=== PATIENT | female | born 1980 | race Caucasian/White ===

== ENCOUNTER 2018-10-10 15:53 | Emergency (ER) | payer BC, SELFPAY ==
[2018-10-10 16:04] VITALS: BP 136/88; PULSE 67; RESP 20; TEMP 36.8; O2SAT 99
--- NOTE | 2018-10-10 16:45 | DI.RAD_ITS ---
SYMPTOM/DIAGNOSIS: COUGH, SOB, R/O ACUTE DISEASE. PA AND LATERAL CHEST: There are no prior comparison exams. The cardiac and mediastinal contours have a normal appearance. The lungs are well inflated and clear. No infiltrate or effusion is seen. IMPRESSION: Negative chest x-ray.
--- NOTE | 2018-10-10 16:46 | ED.GENADUL_ITS ---
Discharge Plan Disposition Patient Disposition: HOME Condition: Stable Discharge Details Chief Complaint: RespSymp Clinical Impression: Chest pain, Cough, Bronchitis Reason For Visit: ? PNEUMONIA Primary Care Provider: None,None ED Provider: Abeba Mcdonald Home Meds and New Rx's Prescriptions: New azithromycin [Zithromax Z-Sahdi] 250 mg tablet See Rx Instructions .ROUTE .COMPLEX Qty: 6 RF: 0 prednisone 50 mg tablet 50 mg PO DAILY Qty: 4 RF: 0 Continued epinephrine [EpiPen] 0.3 mg/0.3 mL Auto-Injector RF: 0 Ventolin HFA 90 mcg/actuation Hfa Aerosol Inhaler 1 PRN PRNRF: 0 Zyrtec 10 mg Tablet,Disintegrating 10 mg PO DAILY AM RF: 0 Aleve-D Sinus and Cold 220-120 mg Tablet Extended Release 12 Hr 1 tab PRNRF: 0 pseudoephedrine-guaifenesin [Mucinex D] 60-600 mg Tablet Extended Release 12 Hr 1 tab PO PRN PRNRF: 0 acetaminophen [Tylenol] 325 mg Tablet 2 tab PO PRN PRNRF: 0 28-800 mg-mcg Tablet 1 RF: 0 Discharge Instructions Instructions: Chest Pain (ED), Acute Bronchitis (ED), Acute Cough (ED) Additional Instructions: Take [id number] cough and cold medicine as needed and directed. Alternate Tylenol and Motrin as needed and directed for pain. Use your inhaler as needed and directed for shortness of breath or wheezing. Take the steroids until finished. If your symptoms do not improve or worsen over the next 2 days, you may start the antibiotics. Consider stopping smoking. Follow-up with your primary care doctor in 1 week for reevaluation. Return immediately to the emergency department any worsening or new concerning symptoms. Discharge Data Discharge Date/Time-TO BE ENTERED AT DEPARTURE: 10/10/18 19:56 Discharge Physician: Abeba Mcdonald Medical Decision Making 38-year-old female with a history of asthma and migraine who presents with cold symptoms for the past 2 days. Main complaint is cough, chest congestion and left-sided chest pain worse with coughing and deep breath. Patient states she is mainly here for chest x-ray to rule out pneumonia. Vitals within normal limits. Afebrile. Patient appears nontoxic and in no acute distress. Normal ENT exam lungs clear to auscultation. Presentation appears likely consistent with bronchitis versus viral syndrome versus flu. Patient received a flu shot this year and she has no fever, so this appears less likely. After discussion with patient, she is mainly concerned about pneumonia and less likely a PE. As she is Wells score low and PERC negative with no other DVT risk factors, PE appears less likely. Will obtain a chest x-ray, d-dimer and EKG. D-dimer negative. EKG unremarkable. Chest x-ray negative. Patient states she feels much better. Discussed with patient that her symptoms can be most likely bronchitis versus viral syndrome. Patient has inhaler at home. Will give a dose of steroids here and prescription for home. Since patient is a smoker, will also give her prescription for antibiotics if symptoms do not improve or worsen. She is instructed to follow-up with primary care doctor return here at any time if worse Medical Records Medical records reviewed: Yes I reviewed the patient's medical records. Imaging Data Radiologic Study: Radiologist's impression: XR Chest, 2 Views EXAM DATE/TIME: 10/10/2018 4:46 PM CLINICAL HISTORY: 38 years old, female; Signs and symptoms; Other: Cough, SOB, R/O acute disease TECHNIQUE: XR of the chest, 2 views. COMPARISON: No relevant prior studies available. FINDINGS: Lungs: Unremarkable. No consolidation. Pleural space: Unremarkable. No pleural effusion. No pneumothorax. Heart/Mediastinum: Unremarkable. No cardiomegaly. Upper abdomen: Surgical clips in the upper abdomen Bones/joints: Unremarkable. IMPRESSION: No acute process Lab Data Lab results reviewed: Yes I reviewed the patient's lab results. ECG Data Attestation: I personally reviewed and interpreted this ECG (s) as follows: Interpretation: 1843 --rate of 61, sinus, no acute ST elevation or depression, QTC 429. QRS 90 HPI General Mode of arrival: ambulatory . Date/Time Provider Initiated Documentation: 10/10/18 16:02 . Limitations to Documentation: no limitations . Information obtained by: patient . HPI Narrative: Patient is a 38-year-old female with history of asthma, migraines and seizures who presents for chest cold for the past 2 days. Patient states her symptoms started with dry cough with chest congestion and then she developed left-sided chest pain with sharp coughing that is worse with a deep breath. Patient states she has been eating and drinking okay. She states she did receive the flu shot this year. Patient denies any fever, ear pain, sore throat, recent antibiotics, or recent travel. 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 Patient states she also feels generally fatigued and she is mainly concerned about pneumonia. She denies leg pain or swelling, recent travel, recent surgery. Related Data Home Medications Medication Instructions Recorded Confirmed Aleve-D Sinus and Cold 1 tab PRN 10/10/18 1 10/10/18 Ventolin HFA 1 PRN PRN 10/10/18 Zyrtec 10 mg PO DAILY AM 10/10/18 10/10/18 acetaminophen [Tylenol] 2 tab PO PRN PRN 10/10/18 10/10/18 azithromycin [Zithromax Z-Shadi] See Rx Instructions .ROUTE 10/10/18 .COMPLEX #6 tab epinephrine [EpiPen] 10/10/18 prednisone 50 mg PO DAILY #4 tab 10/10/18 pseudoephedrine-guaifenesin 1 tab PO PRN PRN 10/10/18 10/10/18 [Mucinex D] Previous Rx's Medication Instructions Recorded azithromycin [Zithromax Z-Shadi] See Rx Instructions .ROUTE 10/10/18 .COMPLEX #6 tab prednisone 50 mg PO DAILY #4 tab 10/10/18 Allergies Allergy/AdvReac Type Severity Reaction Status Date / Time amiodarone Allergy Unverified 10/10/18 16:12 shellfish derived Allergy Unverified 10/10/18 16:11 sumatriptan [From Imitrex] AdvReac Unverified 10/10/18 16:12 General Stated Complaint: RespSymp WES: 3 Review of Systems Review of Systems All systems reviewed & are unremarkable except as noted in HPI and below Constitutional Reports as per HPI, Reports chills and Denies fever(s) Eyes Denies blurry vision ENT Denies dizziness, Denies otalgia, Denies sore throat and Denies throat swelling Cardiovascular Reports chest pain and Denies dyspnea Respiratory Reports chest congestion, Reports cough, Reports pain on inspiration, Reports pain with cough and Denies dyspnea Gastrointestinal Denies abdominal pain, Denies diarrhea and Denies vomiting Genitourinary Denies hematuria and Denies dysuria Musculoskeletal Denies back pain and Denies numbness Integumentary/Breasts Denies lesions and Denies rash Neurologic Denies dizziness and Denies numbness Allergic/Immunologic Denies throat swelling [facility] Medical History Asthma (Chronic) Migraine (Chronic) Seizure disorder (Chronic) Surgical History Hx of cholecystectomy (Chronic) Social History Smoking/Tobacco Use Status: Current every day alcohol intake: current alcohol intake frequency: a few times a month substance use type: does not use Exam Const General: cooperative, healthy appearing and no acute distress HENMT Head: normal to inspection Ears: hearing grossly normal bilaterally and TM's normal bilaterally General nose exam: external nose normal Face and sinus: normal facial exam and sinuses nontender Mouth: oral mucosae normal Teeth and gingiva: dentition normal Throat: posterior oropharynx normal Eyes General: appearance normal, both eyes and all related structures Pupils: PERRL EOM: EOM intact bilaterally Neck Neck: normal visual inspection and No submandibular swelling Lymphatic: no lymphadenopathy noted Chest Chest: normal inspection of the chest and no tenderness Resp Effort & Inspection: normal respiratory effort and able to speak in complete sentences Auscultation: clear to auscultation bilaterally Cardio Rate: regular rate Rhythm: regular rhythm GI Inspection: normal to inspection Palpation: soft, not firm, not rigid and nontender Auscultation: normal bowel sounds Skin General skin exam: no rashes or lesions noted Neuro General: alert, awake and oriented x3 Cognition: normal cognition Speech: speech normal Motor: muscle tone normal throughout Sensory Exam: no sensory deficits noted Extrem General: normal to inspection, full ROM, normal capillary refill, no calf tenderness bilaterally and no edema Psych Appearance: grossly normal Mental Status: mental status grossly normal Speech and Movement: speech and movement normal Affect: normal affect Course Vital Signs Temperature 98.2 F 10/10/18 16:04 Pulse 67 10/10/18 16:04 Respiratory Rate 20 10/10/18 16:04 Blood Pressure 136/88 10/10/18 16:04 Pulse Oximetry 99 10/10/18 16:04 Temperature 98.2 F 10/10/18 16:04 Temperature Source Temporal Artery Scan 10/10/18 16:04 Pulse 67 01/12/19 16:04 Respiratory Rate 20 10/10/18 16:04 Respiratory Effort 10/10/18 16:09 Blood Pressure 136/88 10/10/18 16:04 Blood Pressure Position Sitting 10/10/18 16:04 Pulse Oximetry 99 10/10/18 16:04 Oxygen Delivery Method Room Air 10/10/18 16:04 Oxygen Flow Rate 0 10/10/18 16:04
[2018-10-10] MEDS: Ibuprofen 600 MG TAB PO (16:56)
--- NOTE | 2018-10-10 17:19 | DI.VRAD_ITS ---
EXAM: XR Chest, 2 Views EXAM DATE/TIME: 10/10/2018 4:46 PM CLINICAL HISTORY: 38 years old, female; Signs and symptoms; Other: Cough, SOB, R/O acute disease TECHNIQUE: XR of the chest, 2 views. COMPARISON: No relevant prior studies available. FINDINGS: Lungs: Unremarkable. No consolidation. Pleural space: Unremarkable. No pleural effusion. No pneumothorax. Heart/Mediastinum: Unremarkable. No cardiomegaly. Upper abdomen: Surgical clips in the upper abdomen Bones/joints: Unremarkable. IMPRESSION: No acute process Dictated and Authenticated by: Neeta Angela MD. Ordering:LUISA Us MD
[2018-10-10 19:13] LABS: D-Dimer 205 ng/mlFEU (<500)
[2018-10-10 19:21] VITALS: BP 124/80; PULSE 57; RESP 16; TEMP 36.7; O2SAT 97
[2018-10-10 19:55] VITALS: BP 124/80; PULSE 57; RESP 16; O2SAT 97
[2018-10-10] MEDS: predniSONE 20 MG TAB 60 MG PO (19:55)
== END 2018-10-10 19:56 | disposition home or self-care (01) ==
PROVIDERS: Emergency Provider Physician Assistant
DX: R07.9 Chest pain, unspecified (principal); J20.9 Acute bronchitis, unspecified; F17.210 Nicotine dependence, cigarettes, uncomplicated
CPT/HCPCS: 36415; 81025; 93005; 99284; 71046; 85379; 93010; 99285; J7512

== ENCOUNTER 2020-07-05 15:41 | Emergency (ER) | payer OTHER, BC, SELFPAY ==
[2020-07-05 15:45] VITALS: BP 117/95; PULSE 96; RESP 18; TEMP 36.5; O2SAT 96
--- NOTE | 2020-07-05 16:30 | DI.RAD_ITS ---
EXAM: XR THORACIC SPINE COMPLETE CLINICAL HISTORY: bending/lifting injury TECHNIQUE: COMPARISON: CR,XR XR LUMBAR SPINE COMPLETE from 07/05/2020 FINDINGS: Three views were obtained. The intervertebral disc spaces appear mildly narrowed throughout the thor acic region. There is minimal hypertrophic spurring of the vertebral endplates. There is no evidenc e of fracture or dislocation. There is a minimal biconvex thoracolumbar scoliosis. Of the thoracic spine. Five views of the lumbar spine were obtained. There is slight narrowing of the intervertebral disc s pace at L5-S1. Otherwise intervertebral disc spaces are well maintained. Minimal hypertrophic spurr ing of the facet joints noted throughout the lumbar region. There is no evidence of acute fracture o r dislocation. There is no evidence of spondylolysis or spondylolisthesis. There is slight bilateral SI joint degenerative change. Note is made of prior cholecystectomy. IMPRESSION: Slight degenerative changes noted, no evidence of acute injury. RADIATION DOSE DELIVERED: Total DLP
[2020-07-05] MEDS: Ketorolac 60 MG/2 ML VIAL IM (16:42)
--- NOTE | 2020-07-05 16:43 | ED.GENADUL_ITS ---
Discharge Plan Disposition Patient Disposition: HOME Condition: Stable Discharge Details Clinical Impression: Back pain Primary Care Provider: Bayron Varghese ED Provider: Sukhdev Wray Home Meds and New Rx's Prescriptions: New naproxen [Naprosyn] 500 mg tablet 500 mg PO BID PRNQty: 20 RF: 0 cyclobenzaprine 5 mg tablet 5 mg PO TID PRNQty: 14 RF: 0 Continued epinephrine [EpiPen] 0.3 mg/0.3 mL Auto-Injector 1 mg IM PRN PRNRF: 0 albuterol sulfate [Ventolin HFA] 90 mcg/actuation Hfa Aerosol Inhaler 2 puff inhalation PRN PRNRF: 0 Zyrtec 10 mg Tablet,Disintegrating 10 mg PO DAILY AM RF: 0 Aleve-D Sinus and Cold 220-120 mg Tablet Extended Release 12 Hr 1 tab PO PRN PRNRF: 0 pseudoephedrine-guaifenesin [Mucinex D] 60-600 mg Tablet Extended Release 12 Hr 1 tab PO PRN PRNRF: 0 acetaminophen [Tylenol] 325 mg Tablet 2 tab PO PRN PRNRF: 0 28-800 mg-mcg Tablet 1 tab PO DAILY RF: 0 ergocalciferol (vitamin D2) 1,000 unit Capsule 4,000 unit PO DAILY RF: 0 zinc 50 mg Capsule 50 mg PO DAILY RF: 0 Discharge Instructions Instructions: Back Pain (ED) Additional Instructions: Flexeril and Naprosyn as directed, Flexeril may cause drowsiness. Gentle stretching as tolerated. Cool and/or warm compresses every 2 hours for 20 minutes. Please watch for new or worsening symptoms and return to the ER for any concerns. I am giving you a copy of your x-rays on a CD to bring to your primary care provider and/or chiropractor. I am giving you a work note for Friday. I recommend that you get reassessed on Friday to determine if you are safe to return to work next week or not. Outpatient physical therapy and additional imaging such as MRI may be indicated if symptoms persist Stand Alone Forms: Work Release Discharge Data Discharge Date/Time-TO BE ENTERED AT DEPARTURE: 07/05/20 18:03 Medical Decision Making 40-year-old female with no significant back history presents with right-sided back discomfort while lifting up on a stretcher and her partner of lower the stretcher. There is no abdominal pain, bowel or bladder changes, radiation of pain, numbness, tingling, weakness. Clinically she has right sided upper lumbar, lower thoracic paravertebral discomfort. She is neurologically intact. We discussed our options. Will obtain x-rays of her thoracic and lumbar spine. Apply a Lidoderm patch and give IM Toradol. We discussed muscle relaxer however she does not have a ride home. X-ray lumbar and thoracic spine as no acute abnormality. On reevaluation patient reports that her pain has not resolved completely but has improved with the Toradol and Lidoderm patch. We once again discussed our options. I will provide the patient a copy of her x-ray so that she may bring them to those her primary care provider and her chiropractor, she stated interest in seeing. We discussed that outpatient physical therapy and/or potential MRI may be indicated if symptoms persist. Patient works Friday, will provide her a work note for Friday. In the meantime we discussed gentle stretching, warm and/or cool compresses, anti-inflammatory therapy, and I will provide prescription for Flexeril. Patient is agreeable to this plan and has no additional questions or concerns. Medical Records Medical records reviewed: Yes I reviewed the patient's medical records. HPI General Date/Time Provider Initiated Documentation: 07/05/20 15:50 . Limitations to Documentation: no limitations . Information obtained by: patient . HPI Narrative: This is a 40-year-old female with past medical history of asthma, migraines, seizure disorder, presenting to the ER for right-sided back pain. 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 She instantly felt pain on the right side of her back, pain is moderate at rest, severe with engagement. She denies any radiation of her pain, abdominal pain, bowel or bladder incontinence, numbness, tingling, weakness in her extremities. She denies ever having injured her back in the past. Patient states that either standing upright still or lying down is the most comfortable positions. She has not taken anything for her discomfort. Related Data Home Medications Medication Instructions Recorded Confirmed Aleve-D Sinus and Cold 1 tab PO PRN PRN 10/10/18 07/05/20 1 tab PO DAILY 10/10/18 07/05/20 Zyrtec 10 mg PO DAILY AM 10/10/18 07/05/20 acetaminophen [Tylenol] 2 tab PO PRN PRN 10/10/18 07/05/20 albuterol sulfate [Ventolin HFA] 2 puff INHALATION PRN PRN 10/10/18 07/05/20 epinephrine [EpiPen] 1 mg IM PRN PRN 10/10/18 07/05/20 pseudoephedrine-guaifenesin 1 tab PO PRN PRN 10/10/18 07/05/20 [Mucinex D] cyclobenzaprine 5 mg PO TID PRN #14 tab 07/05/20 ergocalciferol (vitamin D2) 4,000 unit PO DAILY 07/05/20 07/05/20 naproxen [Naprosyn] 500 mg PO BID PRN #20 tab 07/05/20 zinc 50 mg PO DAILY 07/05/20 07/05/20 Previous Rx's Medication Instructions Recorded cyclobenzaprine 5 mg PO TID PRN #14 tab 07/05/20 naproxen [Naprosyn] 500 mg PO BID PRN #20 tab 07/05/20 Allergies Allergy/AdvReac Type Severity Reaction Status Date / Time amiodarone Allergy Unverified 07/05/20 15:49 shellfish derived Allergy Unverified 07/05/20 15:49 sumatriptan [From Imitrex] AdvReac Unverified 07/05/20 15:49 General Stated Complaint: Nk/Back Pain WES: 3 Review of Systems Constitutional Constitutional: Denies weakness ENT Ears, Nose, Mouth, and Throat: Denies neck pain Cardiovascular Cardiovascular: Denies chest pain Gastrointestinal Gastrointestinal: Denies abdominal pain, Denies fecal incontinence, Denies nausea and Denies vomiting Genitourinary Genitourinary: Denies urinary incontinence Musculoskeletal Musculoskeletal: Reports back pain, Denies neck pain, Denies numbness, Denies stiffness and Denies tingling Integumentary/Breasts Skin/Breast: Denies rash Neurologic Neurologic: Denies numbness, Denies tingling and Denies weakness PFSH Medical History Asthma Migraine Seizure disorder Surgical History Hx of cholecystectomy Social History Smoking/Tobacco Use Status: Current every day Alcohol Intake: current Alcohol Intake frequency: a few times a month Drug use: Never Substance use type: does not use Details: brought by co-worker Do you feel safe at home: Yes Do you feel safe in your relationship?: Yes Exam Const General: cooperative, healthy appearing, comfortable and no acute distress Orientation: alert, awake and oriented x3 HENMT Head: normal to inspection, normocephalic and atraumatic Mouth: moist mucous membranes Eyes Conjunctivae: conjunctivae normal Sclera: sclerae normal Neck Neck: normal visual inspection, full ROM, trachea midline, supple and nontender Resp Effort & Inspection: normal respiratory effort and able to speak in complete se ntences Auscultation: clear to auscultation bilaterally Cardio Rate: regular rate Rhythm: regular rhythm GI Palpation: soft, not firm, no guarding and nontender Back/Spine/Pelvis Back: no CVA tenderness and back tenderness (R sided upper lumber-lower thoracic paravertebral soft tissue discomfort) Thoracic/Lumbar Spine: paraspinal tenderness, thoraco-lumbar ROM limited (Secondary to discomfort), No thoraco-lumbar spasm (No true spasm but the area feels tight compared to the left) and straight leg raise positive (Right side, 10 degrees) Skin General skin exam: no rashes or lesions noted Neuro General: patient alert, patient awake, moves all extremities and no focal motor deficits Cognition: normal cognition Gait: antalgic Motor: muscle tone normal throughout and strength 5/5 throughout Sensory Exam: no sensory deficits noted DTR's: Rt Patellar: 2+, Lt Patellar: 2+, Rt Ankle: 2+ and Lt Ankle: 2+ Extrem General: normal to inspection, full ROM, capillary refill normal, no pedal edema and no calf tenderness Psych Appearance: grossly normal Mental Status: mental status grossly normal Course Vital Signs Vital signs: Vital Signs Temperature 36.5 C 07/05/20 15:45 Pulse 96 H 07/05/20 15:45 Respiratory Rate 18 07/05/20 15:45 Blood Pressure 117/95 H 07/05/20 15:45 Pulse Oximetry 96 07/05/20 15:45 Temperature 36.5 C 07/05/20 15:45 Temperature Source Skin 07/05/20 15:45 Pulse 96 H 07/05/20 15:45 Respiratory Rate 18 07/05/20 15:45 Respiratory Effort 07/05/20 15:53 Blood Pressure 117/95 H 07/05/20 15:45 Blood Pressure Position Sitting 07/05/20 15:45 Pulse Oximetry 96 07/05/20 15:45 Oxygen Delivery Method Room Air 07/05/20 15:45 Oxygen Flow Rate 0 07/05/20 15:45 Pain Level 10 07/05/20 15:45
[2020-07-05] MEDS: Lidocaine 5% Patch 1 PATCH (16:47)
[2020-07-05 18:02] VITALS: BP 119/72; PULSE 71; RESP 16; TEMP 36.8; O2SAT 96
--- NOTE | 2020-07-13 16:02 | DI.VRAD_ITS ---
PROCEDURE INFORMATION: Exam: XR Lumbosacral Spine, 4 or 5 Views Exam date and time: 07/05/2020 5:08 PM Age: 40 years old Clinical indication: Injury or trauma; Other: Lifting injury; Work related; Sprain or strain, lumbar ligaments TECHNIQUE: Imaging protocol: XR of the lumbosacral spine, 4 or 5 views. COMPARISON: No relevant prior studies available. FINDINGS: Vertebrae: All spinal elements are developmentally normal and intact. Normal alignment. No degenerative spurring or stenosis. Soft tissues: Normal. Intraperitoneal space: Surgical clips are present in the right upper quadrant, consistent with previous cholecystectomy. IMPRESSION: Normal lumbar spine. Dictated and Authenticated by: Paresh Kim MD. Ordering:MICHAEL Santizo MD
--- NOTE | 2020-07-13 16:02 | DI.VRAD_ITS ---
PROCEDURE INFORMATION: Exam: XR Thoracic Spine, 3 Views Exam date and time: 07/05/2020 5:07 PM Age: 40 years old Clinical indication: Injury or trauma; Other: Lifting injury; Work related; Sprain or strain TECHNIQUE: Imaging protocol: XR of the thoracic spine, 3 views. COMPARISON: No relevant prior studies available. FINDINGS: Vertebrae: Minimal anterior vertebral body spurring. All bones are intact. There is mild dextro rotation of the upper thoracic spine, not likely clinically significant. Sub threshold S-shaped thoracic curvature. Soft tissues: Normal. IMPRESSION: No acute fracture traumatic malalignment or stenosis. Dictated and Authenticated by: Paresh Kim MD. Ordering:MICHAEL Santizo MD
== END 2020-07-05 18:03 | disposition home or self-care (01) ==
PROVIDERS: Emergency Provider Physician Assistant; PCP Physician Assistant
DX: M54.6 Pain in thoracic spine (principal); X50.9XXA Other and unspecified overexertion or strenuous movements or postures, initial encounter; Y99.0 Civilian activity done for income or pay
CPT/HCPCS: 96372; 99284; 72072; 72110; J1885

== ENCOUNTER 2020-09-10 18:41 | Emergency (ER) | payer BC, SELFPAY ==
[2020-09-10 18:44] VITALS: BP 157/85; PULSE 85; RESP 16; TEMP 36.6; O2SAT 98
--- NOTE | 2020-09-10 19:03 | ED.GENADUL_ITS ---
Discharge Plan Disposition Patient Disposition: HOME Condition: Stable Discharge Details Clinical Impression: Laceration of thumb Primary Care Provider: Bayron Varghese ED Provider: Sukhdev Wray Home Meds and New Rx's Prescriptions: Continued epinephrine [EpiPen] 0.3 mg/0.3 mL Auto-Injector 1 mg IM PRN PRNRF: 0 albuterol sulfate [Ventolin HFA] 90 mcg/actuation Hfa Aerosol Inhaler 2 puff inhalation PRN PRNRF: 0 Zyrtec 10 mg Tablet,Disintegrating 10 mg PO DAILY AM RF: 0 Aleve-D Sinus and Cold 220-120 mg Tablet Extended Release 12 Hr 1 tab PO PRN PRNRF: 0 pseudoephedrine-guaifenesin [Mucinex D] 60-600 mg Tablet Extended Release 12 Hr 1 tab PO PRN PRNRF: 0 acetaminophen [Tylenol] 325 mg Tablet 2 tab PO PRN PRNRF: 0 ergocalciferol (vitamin D2) 1,000 unit Capsule 4,000 unit PO DAILY RF: 0 zinc 50 mg Capsule 50 mg PO DAILY RF: 0 naproxen [Naprosyn] 500 mg tablet 500 mg PO BID PRNQty: 20 RF: 0 cyclobenzaprine 5 mg tablet 5 mg PO TID PRNQty: 14 RF: 0 Microfactor 1 po pk PO RF: 0 Discharge Instructions Instructions: Laceration (ED) Additional Instructions: Keep the area clean and dry, change dry sterile dressing daily. Dermabond will come off on its own in approximately 7 days. Please watch for new or worsening symptoms and return to the ER for any concerns. Medical Decision Making This is a 40-year-old female, ambidextrous, presents with a left thumb laceration. Appears well, no distress. Bleeding controlled, no foreign body. Tetanus up-to-date. Will thoroughly soak, scrub, irrigate the laceration and repair. After the laceration was thoroughly cleaned, I was able to approximate the flap laceration using Dermabond without any difficulty. Patient tolerated well. Dry sterile dressing applied Medical Records Medical records reviewed: Yes I reviewed the patient's medical records. HPI General Mode of arrival: ambulatory . Date/Time Provider Initiated Documentation: 09/10/20 18:42 . Limitations to Documentation: no limitations . Information obtained by: patient . HPI Narrative: This is a 40-year-old female, who is ambidextrous, who sustained a left thumb laceration just prior to arrival while cutting carrots. She reports the pain is mild. Denies numbness, tingling, weakness. Tetanus status up-to-date. No additional concerns or complaints. No foreign body. Bleeding is controlled. Related Data Home Medications Medication Instructions Recorded Confirmed Aleve-D Sinus and Cold 1 tab PO PRN PRN 10/10/18 09/10/20 Zyrtec 10 mg PO DAILY AM 10/10/18 09/10/20 acetaminophen [Tylenol] 2 tab PO PRN PRN 10/10/18 09/10/20 albuterol sulfate [Ventolin HFA] 2 puff INHALATION PRN PRN 10/10/18 09/10/20 epinephrine [EpiPen] 1 mg IM PRN PRN 10/10/18 09/10/20 pseudoephedrine-guaifenesin 1 tab PO PRN PRN 10/10/18 09/10/20 [Mucinex D] cyclobenzaprine 5 mg PO TID PRN #14 tab 07/05/20 09/10/20 ergocalciferol (vitamin D2) 4,000 unit PO DAILY 07/05/20 09/10/20 naproxen [Naprosyn] 500 mg PO BID PRN #20 tab 07/05/20 09/10/20 zinc 50 mg PO DAILY 07/05/20 09/10/20 Microfactor 1 po pk PO 09/10/20 Previous Rx's Medication Instructions Recorded cyclobenzaprine 5 mg PO TID PRN #14 tab 07/05/20 naproxen [Naprosyn] 500 mg PO BID PRN #20 tab 07/05/20 Allergies Allergy/AdvReac Type Severity Reaction Status Date / Time amiodarone Allergy Unverified 09/10/20 18:47 shellfish derived Allergy Unverified 09/10/20 18:47 sumatriptan [From Imitrex] AdvReac Unverified 09/10/20 18:47 General Stated Complaint: Laceration WES: 4 Review of Systems Musculoskeletal Musculoskeletal: Denies arthralgias and Denies tingling Integumentary/Breasts Skin/Breast: Denies erythema Neurologic Neurologic: Denies tingling [facility] Medical History Asthma Migraine Seizure disorder Surgical History Hx of cholecystectomy Social History Smoking/Tobacco Use Status: Current every day Smoking risk assessment performed?: Yes Alcohol Intake: current Alcohol Intake frequency: a few times a month Drug use: Never Substance use type: does not use Details: brought by co-worker Do you feel safe at home: Yes Do you feel safe in your relationship?: Yes Exam Const General: cooperative, healthy appearing, comfortable and no acute distress Orientation: alert and awake HENMT Head: normal to inspection, normocephalic and atraumatic Mouth: moist mucous membranes Eyes Conjunctivae: conjunctivae normal Neck Neck: normal visual inspection, trachea midline and supple Resp Effort & Inspection: normal respiratory effort and able to speak in complete sentences Cardio Rate: regular rate Rhythm: regular rhythm Skin General skin exam: no rashes or lesions noted Neuro General: patient alert, patient awake, moves all extremities and no focal motor deficits Motor: muscle tone normal throughout Sensory Exam: no sensory deficits noted Extrem Hand/finger images: 1. There is a 1 cm flap laceration that is well approximated. There is no active bleeding or obvious foreign body. Full range of motion. Neuro, vascular, tendon intact. Psych Appearance: grossly normal Mental Status: mental status grossly normal Course Vital Signs Vital signs: Vital Signs Temperature 36.6 C 09/10/20 18:44 Pulse 85 09/10/20 18:44 Respiratory Rate 16 09/10/20 18:44 Blood Pressure 157/85 H 09/10/20 18:44 Pulse Oximetry 98 09/10/20 18:44 Temperature 36.6 C 09/10/20 18:44 Temperature Source Skin 09/10/20 18:44 Pulse 85 09/10/20 18:44 Respiratory Rate 16 09/10/20 18:44 Respiratory Effort Non-Labored 09/10/20 18:46 Blood Pressure 157/85 H 09/10/20 18:44 Blood Pressure Position Sitting 09/10/20 18:44 Pulse Oximetry 98 09/10/20 18:44 Oxygen Delivery Method Room Air 09/10/20 18:44 Oxygen Flow Rate 0 09/10/20 18:44 Pain Level 1 09/10/20 18:44
== END 2020-09-10 20:30 | disposition home or self-care (01) ==
PROVIDERS: Emergency Provider Physician Assistant; PCP Physician Assistant
DX: S61.012A Laceration without foreign body of left thumb without damage to nail, initial encounter (principal); W26.0XXA Contact with knife, initial encounter
CPT/HCPCS: 12001

== ENCOUNTER 2021-08-20 09:37 | Outpatient (CLI) | payer BC, SELFPAY ==
[2021-08-20 10:38] LABS: Source Nasal/Nares
[2021-08-20 17:39] LABS: COVID-19 PCR Negative (Negative)
== END 2021-08-20 09:38 | disposition home or self-care (01) ==
LOC: LBO 09:39
PROVIDERS: PCP Physician Assistant; Visit Provider Family Medicine
DX: Z20.822 Contact with and (suspected) exposure to COVID-19 (principal)
CPT/HCPCS: 87635

== ENCOUNTER 2021-12-10 21:13 | Emergency (ER) | payer OTHER, SELFPAY ==
[2021-12-10 21:21] VITALS: BP 141/91; PULSE 98; RESP 18; TEMP 37; O2SAT 98
--- NOTE | 2021-12-10 21:45 | DI.RAD_ITS ---
Exam(s) XR SHOULDER LT COMPLETE 2+V XR CLAVICLE LT EXAM: XR CLAVICLE LT CLINICAL HISTORY: trauma TECHNIQUE: 2D digital imaging was performed. COMPARISON: CR,XR XR SHOULDER LT COMPLETE 2+V from 12/10/2021 FINDINGS: BONES: No acute fracture is present. No bony destructive lesion is seen. JOINTS: No dislocation present. AC joint unremarkable. Glenohumeral joint well maintained. SOFT TISSUE: Small calcification near the greater tuberosity could indicate calcific tendinosis. IMPRESSION: No acute abnormality. Calcific tendinosis. DATA REPOSITORY: RADIATION DOSE DELIVERED:
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
[2021-12-10] MEDS: Ibuprofen 600 MG TAB PO (23:03)
[2021-12-10 23:06] VITALS: BP 136/83; PULSE 85; RESP 14; TEMP 37; O2SAT 100
== END 2021-12-10 23:16 | disposition home or self-care (01) ==
PROVIDERS: Emergency Provider Nurse Practitioner Family; PCP Physician Assistant
DX: S40.012A Contusion of left shoulder, initial encounter (principal); S00.83XA Contusion of other part of head, initial encounter; S50.02XA Contusion of left elbow, initial encounter; Y04.2XXA Assault by strike against or bumped into by another person, initial encounter; Y99.0 Civilian activity done for income or pay
CPT/HCPCS: 99284; 73000; 73030; 99283

== ENCOUNTER 2022-03-19 19:00 | Outpatient (REF) | payer BC, SELFPAY ==
[2022-03-19 15:24] LABS: HCT 44.1 % (36.0-46.0); HGB 14.8 g/dL (11.2-15.7); MCH 29.8 pg (27.0-33.0); MCHC 33.6 % (32.0-36.0); MCV 89 fL (80-95); MPV 10.7 fL (8.0-11.0); Platelet Count 317 10^3/uL (130-400); RBC 4.96 10^6/uL (3.93-5.22); RDW 12.9 % (11.7-14.6); RDW-SD 42.5 fL; WBC 5.71 10^3/uL (4.4-10.8)
[2022-03-19 16:39] LABS: Hemoglobin A1C 5.7 % (<5.7)
[2022-03-19 18:14] LABS: ALT 18 U/L (14-59); AST 18 U/L (15-37); Albumin 4.3 g/dL (3.4-5.0); Alkaline Phosphatase 65 U/L (46-116); Anion Gap 7.9 mmol/L (3-11); BUN 13 mg/dL (7-18); Bilirubin, Total 0.4 mg/dL (0.2-1.0); CO2 28.1 mmol/L (21.0-32.0); CREATININE 0.8 mg/dL (0.55-1.02); Calcium 8.8 mg/dL (8.5-10.1); Chloride 99 mmol/L (98-107); Glucose 94 mg/dL (74-106); Potassium 3.9 mmol/L (3.5-5.1); Sodium 135 mmol/L (136-145); Total Protein 7.5 g/dL (6.4-8.2)
[2022-03-19 18:40] LABS: Calculated LDL 110 mg/dL (<100); Cholesterol 179 mg/dL (<200); HDL Cholesterol 51 mg/dL (40-60); Triglyceride 91 mg/dL (<150)
[2022-03-21 05:10] LABS: Vitamin D 25 Total 18.1 ng/mL (30-100)
== END 2022-03-19 19:01 | disposition home or self-care (01) ==
LOC: NCHCN 19:00
PROVIDERS: PCP Physician Assistant; Visit Provider Nurse Practitioner Family
DX: R73.09 Other abnormal glucose (principal); Z00.00 Encounter for general adult medical examination without abnormal findings; E55.9 Vitamin D deficiency, unspecified; E66.9 Obesity, unspecified
CPT/HCPCS: 80053; 80061; 82306; 85027; 83036

== ENCOUNTER 2022-04-21 18:23 | Emergency (ER) | payer BC, SELFPAY ==
[2022-04-21 18:29] VITALS: BP 128/80; PULSE 87; RESP 16; TEMP 36.2; O2SAT 97
--- NOTE | 2022-04-21 18:58 | ED.GENADUL_ITS ---
Discharge Plan Disposition Patient Disposition: HOME Condition: Stable Discharge Details Clinical Impression: Dog bite of forearm Primary Care Provider: Katerin Puente ED Provider: Arlene Sierra Home Meds and New Rx's Prescriptions: New doxycycline hyclate 100 mg tablet 100 mg PO BID 7 Days Qty: 14 0RF Continued epinephrine [EpiPen] 0.3 mg/0.3 mL Auto-Injector 1 mg IM PRN PRN albuterol sulfate [Ventolin HFA] 90 mcg/actuation Hfa Aerosol Inhaler 2 puff inhalation PRN PRN Zyrtec 10 mg Tablet,Disintegrating 10 mg PO DAILY AM Aleve-D Sinus and Cold 220-120 mg Tablet Extended Release 12 Hr 1 tab PO PRN PRN acetaminophen [Tylenol] 325 mg Tablet 2 tab PO PRN PRN ergocalciferol (vitamin D2) 1,000 unit Capsule 4,000 unit PO DAILY naproxen [Naprosyn] 500 mg tablet 500 mg PO BID PRNQty: 20 0RF Microfactor 1 po pk PO DAILY Discharge Instructions Additional Instructions: Please return should shoulder develop fever, chills, worsening pain, spreading redness Take the antibiotic as prescribed for 5 to 7 days Yogurt daily while on the antibiotic Change dressing daily Discharge Data Discharge Date/Time-TO BE ENTERED AT DEPARTURE: 04/21/22 19:21 Medical Decision Making cleansed wound copiously doxycycline rabies vaccine utd for dog and td utd per pt return precautions discussed n/v intact Medical Records Medical records reviewed: Yes I reviewed the patient's medical records. Lab Data Lab results reviewed: Yes I reviewed the patient's lab results. HPI General Date/Time Provider Initiated Documentation: 04/21/22 18:43 . HPI Narrative: This 41-year-old female is otherwise healthy presents with report of dog bite just prior to arrival by own dog. Dog is up-to-date on vaccines and patient's tetanus is up-to-date. This occurred on her left forearm. She denies any additional injuries. She denies any strength or sensation change. Related Data Home Medications Medication Instructions Recorded Confirmed acetaminophen 325 mg tablet 2 tab PO PRN PRN 10/10/18 04/21/22 (Tylenol) albuterol sulfate 90 mcg/actuation 2 puff inhalation PRN PRN 10/10/18 04/21/22 aerosol inhaler (Ventolin HFA) cetirizine 10 mg disintegrating 10 mg PO DAILY AM 10/10/18 04/21/22 tablet (Zyrtec) epinephrine 0.3 mg/0.3 mL 1 mg IM PRN PRN 10/10/18 04/21/22 injection, auto-injector (EpiPen) naproxen 220 mg-pseudoephedrine 1 tab PO PRN PRN 10/10/18 04/21/22 120 mg ER tablet, extend release,12 hr (Aleve-D Sinus and Cold) ergocalciferol (vitamin D2) 1,000 4,000 unit PO DAILY 07/05/20 04/21/22 unit capsule naproxen 500 mg tablet (Naprosyn) 500 mg PO BID PRN #20 tabs 07/05/20 04/21/22 Microfactor 1 po pk PO DAILY 09/10/20 04/21/22 doxycycline hyclate 100 mg tablet 100 mg PO BID 7 days #14 tabs 04/21/22 Previous Rx's Medication Instructions Recorded naproxen 500 mg tablet (Naprosyn) 500 mg PO BID PRN #20 tabs 07/05/20 doxycycline hyclate 100 mg tablet 100 mg PO BID 7 days #14 tabs 04/21/22 Allergies Allergy/AdvReac Type Severity Reaction Status Date / Time amiodarone Allergy Unverified 04/21/22 18:33 shellfish derived Allergy Unverified 04/21/22 18:33 sumatriptan [From Imitrex] AdvReac Unverified 04/21/22 18:33 General Stated Complaint: AnimalBite WES: 4 Review of Systems All systems reviewed & are unremarkable except as noted in HPI and below PFSH All Active Problems (Updated 04/21/22 @ 19:03 by LUIS Regalado) Dog bite of forearm (Acute) Medical History (Updated 04/21/22 @ 19:03 by LUIS Regalado) Asthma Migraine Seizure disorder Surgical History Hx of cholecystectomy Social History Smoking/Tobacco Use Status: Current every day Smoking risk assessment performed?: Yes Alcohol Intake: current Alcohol Intake frequency: a few times a month Alcohol type: wine Drug use: Never Substance use type: does not use Do you feel safe at home: Yes Do you feel safe in your relationship?: Yes Exam Const General: cooperative, comfortable and no acute distress Extrem Elbow/forearm/wrist images: 1. puncture and abrasion n/v intact Course Vital Signs Vital signs: Vital Signs Temperature 36.2 C L 04/21/22 18:29 Pulse 87 04/21/22 18:29 Respiratory Rate 16 04/21/22 18:29 Blood Pressure 128/80 04/21/22 18:29 Pulse Oximetry 97 04/21/22 18:29 Temperature 36.2 C L 04/21/22 18:29 Temperature Source Skin 04/21/22 18:29 Pulse 87 04/21/22 18:29 Respiratory Rate 16 04/21/22 18:29 Respiratory Effort 04/21/22 18:34 Blood Pressure 128/80 04/21/22 18:29 Blood Pressure Position Sitting 04/21/22 18:29 Pulse Oximetry 97 04/21/22 18:29 Oxygen Delivery Method Room Air 04/21/22 18:29 Oxygen Flow Rate 0 04/21/22 18:29 Pain Level 4 04/21/22 18:29
[2022-04-21] MEDS: Doxycycline Hyclate 100 MG CAP PO (19:10)
== END 2022-04-21 19:21 | disposition home or self-care (01) ==
PROVIDERS: Emergency Provider Physician Assistant; PCP Nurse Practitioner Family
DX: S51.852A Open bite of left forearm, initial encounter (principal); J45.909 Unspecified asthma, uncomplicated; G40.909 Epilepsy, unspecified, not intractable, without status epilepticus; F17.200 Nicotine dependence, unspecified, uncomplicated; W54.0XXA Bitten by dog, initial encounter
CPT/HCPCS: 99283

== ENCOUNTER 2022-05-14 11:27 | Emergency (ER) | payer BC, SELFPAY ==
[2022-05-14 11:30] VITALS: BP 151/71; PULSE 90; RESP 18; O2SAT 99
--- NOTE | 2022-05-14 11:45 | DI.RAD_ITS ---
Exam(s) XR FOREARM RT EXAM: XR FOREARM RT CLINICAL HISTORY: pain s/p dogbite. TECHNIQUE: 2D digital imaging was performed. COMPARISON: No exams were available for comparison FINDINGS: Two views: There are air densities in the subcutaneous tissues over the anterior aspect of the distal forearm ju st above the wrist. No radiopaque foreign body. No fractures of the subjacent radius and ulna. IMPRESSION: Wrist area wounds as described above. No significant osseous findings. DATA REPOSITORY: RADIATION DOSE DELIVERED:
--- NOTE | 2022-05-14 11:45 | DI.RAD_ITS ---
Exam(s) XR FOREARM LT EXAM: XR FOREARM LT CLINICAL HISTORY: dog bite, pain. TECHNIQUE: 2D digital imaging was performed. COMPARISON: CR XR FOREARM RT from 05/14/2022 FINDINGS: Two views There is wound density with air in the subcutaneous soft tissues on the anterior aspect of the forear m. No radiopaque foreign body. No subjacent fractures in the radius and ulna. IMPRESSION: Soft tissue wounds. No osseous findings. DATA REPOSITORY: RADIATION DOSE DELIVERED:
--- NOTE | 2022-05-14 11:48 | ED.GENADUL_ITS ---
Discharge Plan Disposition Patient Disposition: HOME Condition: Stable Discharge Details Clinical Impression: Dog bite of forearm, Dog bite of left thigh Primary Care Provider: Katerin Puente ED Provider: Rickey Roth Home Meds and New Rx's Prescriptions: New amoxicillin-pot clavulanate 875-125 mg tablet 1 tab PO BID Qty: 14 0RF Continued epinephrine [EpiPen] 0.3 mg/0.3 mL Auto-Injector 1 mg IM PRN PRN albuterol sulfate [Ventolin HFA] 90 mcg/actuation Hfa Aerosol Inhaler 2 puff inhalation PRN PRN Zyrtec 10 mg Tablet,Disintegrating 10 mg PO DAILY AM Aleve-D Sinus and Cold 220-120 mg Tablet Extended Release 12 Hr 1 tab PO PRN PRN acetaminophen [Tylenol] 325 mg Tablet 2 tab PO PRN PRN ergocalciferol (vitamin D2) 1,000 unit Capsule 4,000 unit PO DAILY naproxen [Naprosyn] 500 mg tablet 500 mg PO BID PRNQty: 20 0RF Microfactor 1 po pk PO DAILY Discharge Instructions Instructions: Animal Bite (ED) Additional Instructions: return in 7-10 days for evaluation for suture removal if you have spreading redness, yellow/white discharge or severe worsening pain return to the emergency department Medical Decision Making 42 yo female comes in after a dog bite. She was bitten by her significant other's dog in March and while offering the dog a cookie today the dog again attacked her. She got bit on the left and right forearm and left posterior thigh. She states the dog is vaccinate for rabies and she also is up todate on her tetanus status. She has several puncture wounds to both posterior and anterior forearms and a 2cm laceration of distal anterior forearm on the right, it runs horizontally. She has full rom of all joints and intact sensation. Has superficial abrasion about 3cm in length on the left posterior thigh. Will obtain xrays of both forearms to evaluate for possible fracture no acute findings on forearm xrays. Given the laceration on her right anterior forearm was deep after discussing with her closed it loosely with 3 sutures after irrigation. Nursing will clearn her puncture wounds on the left forearm. Will initiate augmentin and advised to return in 7-10 days for suture removal and sooner if signs of infection Differential Diagnosis Differential Diagnosis: dog bite, lacerations, fracture Imaging Data Radiologic Study: Attestation: I personally reviewed and interpreted this imaging study as follows: Imaging: X-Ray My impression: no acute fracture left forearm xray Radiologic Study #2: Attestation: I personally reviewed and interpreted this imaging study as follows: Imaging: X-Ray My impression: no acute fracutre right forearm xray HPI General Mode of arrival: ambulatory . Date/Time Provider Initiated Documentation: 05/14/22 11:41 . Limitations to Documentation: no limitations . Information obtained by: patient . History of Present Illness 42 year old F presents to the emergency department with the chief complaint of dog bite, described as moderate, and is localized to the upper extremity and lower extremity. Patient reports no radiation. Patient started experiencing this hour(s) (1) and it has been constant. No relieving factors improve symptom(s), No exacerbating factors reported . Patient notes no other sympto ms.. Related Data Home Medications Medication Instructions Recorded Confirmed acetaminophen 325 mg tablet 2 tab PO PRN PRN 10/10/18 05/14/22 (Tylenol) albuterol sulfate 90 mcg/actuation 2 puff inhalation PRN PRN 10/10/18 05/14/22 aerosol inhaler (Ventolin HFA) cetirizine 10 mg disintegrating 10 mg PO DAILY AM 10/10/18 05/14/22 tablet (Zyrtec) epinephrine 0.3 mg/0.3 mL 1 mg IM PRN PRN 10/10/18 05/14/22 injection, auto-injector (EpiPen) naproxen 220 mg-pseudoephedrine 1 tab PO PRN PRN 10/10/18 05/14/22 120 mg ER tablet, extend release,12 hr (Aleve-D Sinus and Cold) ergocalciferol (vitamin D2) 1,000 4,000 unit PO DAILY 07/05/20 05/14/22 unit capsule naproxen 500 mg tablet (Naprosyn) 500 mg PO BID PRN #20 tabs 07/05/20 05/14/22 Microfactor 1 po pk PO DAILY 09/10/20 05/14/22 amoxicillin 875 mg-potassium 1 tab PO BID #14 tabs 05/14/22 clavulanate 125 mg tablet Previous Rx's Medication Instructions Recorded naproxen 500 mg tablet (Naprosyn) 500 mg PO BID PRN #20 tabs 07/05/20 amoxicillin 875 mg-potassium 1 tab PO BID #14 tabs 05/14/22 clavulanate 125 mg tablet Allergies Allergy/AdvReac Type Severity Reaction Status Date / Time amiodarone Allergy Unverified 04/21/22 18:33 shellfish derived Allergy Unverified 04/21/22 18:33 sumatriptan [From Imitrex] AdvReac Unverified 04/21/22 18:33 General Stated Complaint: AnimalBite WES: 3 Review of Systems All systems reviewed & are unremarkable except as noted in HPI and below Constitutional Constitutional: Denies chills, Denies fever(s) and Denies weakness Eyes Eyes: Denies loss of vision ENT Ears, Nose, Mouth, and Throat: Denies change in voice Cardiovascular Cardiovascular: Denies chest pain and Denies dyspnea Respiratory Respiratory: Denies cough and Denies dyspnea Gastrointestinal Gastrointestinal: Denies abdominal pain, Denies nausea and Denies vomiting Integumentary/Breasts Skin/Breast: Denies rash Neurologic Neurologic: Denies loss of vision and Denies weakness PFSH All Active Problems (Updated 05/14/22 @ 13:24 by Rickey Roth MD) Dog bite of forearm (Acute) Dog bite of left thigh (Acute) Medical History (Updated 05/14/22 @ 13:24 by Rickey Roth MD) Asthma Migraine Seizure disorder Surgical History Hx of cholecystectomy Social History Smoking/Tobacco Use Status: Current every day Smoking risk assessment performed?: Yes Alcohol Intake: current Alcohol Intake frequency: a few times a month Alcohol type: wine Drug use: Never Substance use type: does not use Do you feel safe at home: Yes Do you feel safe in your relationship?: Yes Exam Const General: no acute distress Orientation: alert HENMT Head: normal to inspection Ears: external ears normal General nose exam: external nose normal Mouth: moist mucous membranes Eyes General: appearance normal, both eyes and all related structures Neck Neck: normal visual inspection Resp Effort & Inspection: normal respiratory effort and able to speak in complete sentences Cardio Rate: regular rate Skin General skin exam: no rashes or lesions noted Neuro General: patient alert and patient oriented x3 Extrem General: full ROM and capillary refill normal Psych Mental Status: mental status grossly normal Course Vital Signs Vital signs: Vital Signs Pulse 90 05/14/22 11:30 Respiratory Rate 18 05/14/22 11:30 Blood Pressure 151/71 H 05/14/22 11:30 Pulse Oximetry 99 05/14/22 11:30 Temperature Source Temporal Artery Scan 05/14/22 11:30 Pulse 90 05/14/22 11:30 Respiratory Rate 18 05/14/22 11:30 Blood Pressure 151/71 H 05/14/22 11:30 Blood Pressure Position Sitting 05/14/22 11:30 Pulse Oximetry 99 05/14/22 11:30 Oxygen Delivery Method Room Air 05/14/22 11:30 Oxygen Flow Rate 0 05/14/22 11:30 Pain Level 8 05/14/22 11:30 Procedures Laceration Laceration 1: Site: upper extremity Side (If applicable): right Size (cm): 3 Description: linear Depth: simple, single layer Local Anesthetic: Lidocaine 2% and with Epi Amount of anesthesia used (mL): 5 Pre-repair: wound explored and irrigated extensively Skin layer closed with: nylon Size (cm): 5-0 Number of sutures: 3 Technique: simple, interrupted
[2022-05-14] MEDS: Ketorolac 30 MG/ML VIAL IM (11:51)
--- NOTE | 2022-05-14 12:00 | NUR.NOTE ---
Faxed animal bite report to the [facility] health officer Donny Torres.Nursing Note:
== END 2022-05-14 13:50 | disposition home or self-care (01) ==
PROVIDERS: Emergency Provider Emergency Medicine; PCP Nurse Practitioner Family
DX: S51.811A Laceration without foreign body of right forearm, initial encounter (principal); S51.832A Puncture wound without foreign body of left forearm, initial encounter; S71.152A Open bite, left thigh, initial encounter; W54.0XXA Bitten by dog, initial encounter; F17.200 Nicotine dependence, unspecified, uncomplicated
CPT/HCPCS: 12002; 96372; 99284; 73090; J1885

== ENCOUNTER 2022-05-17 15:23 | Emergency (ER) | payer BC, SELFPAY ==
[2022-05-17 15:26] VITALS: BP 147/87; PULSE 86; TEMP 37; O2SAT 99
--- NOTE | 2022-05-17 15:57 | ED.GENADUL_ITS ---
Discharge Plan Disposition Patient Disposition: HOME Condition: Stable Discharge Details Clinical Impression: Dog bite of forearm, Contusion of right ulnar nerve Primary Care Provider: Katerin Puente ED Provider: Rad Rizo Home Meds and New Rx's Prescriptions: New levofloxacin 500 mg tablet 500 mg PO DAILY 7 Days Qty: 7 0RF clindamycin HCl 300 mg capsule 300 mg PO Q6H 7 Days Qty: 28 0RF Continued epinephrine [EpiPen] 0.3 mg/0.3 mL Auto-Injector 1 mg IM PRN PRN albuterol sulfate [Ventolin HFA] 90 mcg/actuation Hfa Aerosol Inhaler 2 puff inhalation PRN PRN Zyrtec 10 mg Tablet,Disintegrating 10 mg PO DAILY AM Aleve-D Sinus and Cold 220-120 mg Tablet Extended Release 12 Hr 1 tab PO PRN PRN acetaminophen [Tylenol] 325 mg Tablet 2 tab PO PRN PRN ergocalciferol (vitamin D2) 1,000 unit Capsule 4,000 unit PO DAILY naproxen [Naprosyn] 500 mg tablet 500 mg PO BID PRNQty: 20 0RF Microfactor 1 po pk PO DAILY Discontinued amoxicillin-pot clavulanate 875-125 mg tablet 1 tab PO BID Qty: 14 0RF Medical Decision Making 42-year-old female bit by an immunized dog on May 14. Placed on Augmentin and had Steri-Strips of the left forearm puncture wounds and 2 sutures placed to the right forearm. She feels the right fourth and fifth fingers have been numb since the time of the injury. She has some overall weakness of the right hand as well. Exam does reveal diminished sensation in the fourth and fifth fingers on the volar surface. She has pain with flexion of the fingers a motor is intact. The left forearm had serous oozing overnight. Patient is well-appearing and in no distress, she does not appear to have systemic infection. I discussed the case with Dr. Lama. I will redress the wounds, placed the right forearm in the splint and change her antibiotics to dual therapy. We will have her follow-up in orthopedics early in the week for recheck. I discussed the plan of care with the patient. HPI General Mode of arrival: ambulatory . Date/Time Provider Initiated Documentation: 05/17/22 15:38 . Limitations to Documentation: no limitations . Information obtained by: patient . History of Present Illness 42 year old F presents to the emergency department with the chief complaint of Right arm numbness, left arm weeping after dog bite, described as moderate, Quality is described as dull and constant, and is localized to the left, right and upper extremity. Patient reports no radiation. Patient started experiencing this hour(s) and it has been constant. No exacerbating factors reported . Patient notes denies fever/chills and loss of appetite. Patient did receive the following treatments prior to arrival, NSAID Related Data Home Medications Medication Instructions Recorded Confirmed acetaminophen 325 mg tablet 2 tab PO PRN PRN 10/10/18 05/17/22 (Tylenol) albuterol sulfate 90 mcg/actuation 2 puff inhalation PRN PRN 10/10/18 05/17/22 aerosol inhaler (Ventolin HFA) cetirizine 10 mg disintegrating 10 mg PO DAILY AM 10/10/18 05/17/22 tablet (Zyrtec) epinephrine 0.3 mg/0.3 mL 1 mg IM PRN PRN 10/10/18 05/17/22 injection, auto-injector (EpiPen) naproxen 220 mg-pseudoephedrine 1 tab PO PRN PRN 10/10/18 05/17/22 120 mg ER tablet, extend release,12 hr (Aleve-D Sinus and Cold) ergocalciferol (vitamin D2) 1,000 4,000 unit PO DAILY 07/05/20 05/17/22 unit capsule naproxen 500 mg tablet (Naprosyn) 500 mg PO BID PRN #20 tabs 07/05/20 05/17/22 Microfactor 1 po pk PO DAILY 09/10/20 05/17/22 clindamycin HCl 300 mg capsule 300 mg PO Q6H 7 days #28 caps 05/17/22 levofloxacin 500 mg tablet 500 mg PO DAILY 1 week #7 tabs 05/17/22 Previous Rx's Medication Instructions Recorded naproxen 500 mg tablet (Naprosyn) 500 mg PO BID PRN #20 tabs 07/05/20 clindamycin HCl 300 mg capsule 300 mg PO Q6H 7 days #28 caps 05/17/22 levofloxacin 500 mg tablet 500 mg PO DAILY 1 week #7 tabs 05/17/22 Allergies Allergy/AdvReac Type Severity Reaction Status Date / Time amiodarone Allergy Unverified 05/17/22 15:30 shellfish derived Allergy Unverified 05/17/22 15:30 sumatriptan [From Imitrex] AdvReac Unverified 05/17/22 15:30 General Stated Complaint: Cellulitis WES: 3 Review of Systems Narrative: 6 systems reviewed and otherwise negative. PFSH All Active Problems (Updated 05/17/22 @ 16:15 by Rad Rizo MD) Dog bite of forearm (Acute) Dog bite of left thigh (Acute) Contusion of right ulnar nerve (Acute) Medical History (Updated 05/17/22 @ 16:15 by Rad Rizo MD) Asthma Migraine Seizure disorder Surgical History Hx of cholecystectomy Social History Smoking/Tobacco Use Status: Current every day Smoking risk assessment performed?: Yes Alcohol Intake: current Alcohol Intake frequency: a few times a month Alcohol type: wine Drug use: Never Substance use type: does not use Do you feel safe at home: Yes Do you feel safe in your relationship?: Yes Exam Narrative Exam Narrative: GEN: awake, alert, oriented 3. Pleasant, well groomed, interactive. HEAD: Normocephalic, atraumatic ENT: Mucous membranes moist, oropharynx unremarkable, External ear exam unremarkable EYES: PERRL, EOMI NECK: Full ROM, no LIBBY, no menigismus CHEST/RESP: Nontender, clear to auscultation bilateral, no wheeze/rhonchi/rales CARDIOVASCULAR: RRR, no murmur, rub luiz. 2+ Rad pulse bilateral ABDOMEN: Soft, nontender, no mass. +Bowel sounds EXT: Full ROM,, the right hand has some weakness. There is numbness on the volar aspect of the right hand fourth and fifth digits. The right volar forearm has a puncture wound approximately 5 cm proximal to the flexor crease. There is pain with flexion of the fingers movement is intact. The left arm has puncture wounds on the volar surface of the mid forearm with surrounding erythema. Both arms are edematous with palpable pulses. Neuro: Grossly normal neurologic exam, conversant, interactive. Psych: Speech fluent, thoughts congruent, affect normal Course Vital Signs Vital signs: Vital Signs Temperature 37 C 05/17/22 15:26 Pulse 86 05/17/22 15:26 Blood Pressure 147/87 H 05/17/22 15:26 Pulse Oximetry 99 05/17/22 15:26 Temperature 37 C 05/17/22 15:26 Temperature Source Temporal Artery Scan 05/17/22 15:26 Pulse 86 05/17/22 15:26 Respiratory Effort Non-Labored 05/17/22 15:31 Blood Pressure 147/87 H 05/17/22 15:26 Blood Pressure Position Sitting 05/17/22 15:26 Pulse Oximetry 99 05/17/22 15:26 Oxygen Delivery Method Room Air 05/17/22 15:26 Oxygen Flow Rate 0 05/17/22 15:26 PAWSS Have you Been Recently Intoxicated or Drunk Within the Last 30 days?: No Have you Ever Experienced Previous Episodes of Alcohol Withdrawal?: No Have you ever Experienced Withdrawal Seizures?: No Have you ever Experienced Delirium Tremens(DT)s?: No Have you ever undergone Alcohol Rehabilitation Treatment (i.e, inpt ot outpatient treatment programs)?: No Have you ever Experienced Blackouts?: No Have you ever Combined Alcohol with other Downers within the last 90 days?: No Have you ever Combined Alcohol with any other Substance of Abuse during the last 90 days?: No Positive Blood Alcohol level on Presentation? [PCS.BAL]: No Evidence of Increased Autonomic Activity (i.e. HR>120, tremor, sweating, agitation, nausea)?: No Result: 0
[2022-05-17] MEDS: levoFLOXacin 500 MG TAB PO (16:25)
== END 2022-05-17 18:19 | disposition home or self-care (01) ==
PROVIDERS: Emergency Provider Emergency Medicine; PCP Nurse Practitioner Family
DX: S51.831A Puncture wound without foreign body of right forearm, initial encounter (principal); S51.832A Puncture wound without foreign body of left forearm, initial encounter; F17.200 Nicotine dependence, unspecified, uncomplicated; W54.0XXA Bitten by dog, initial encounter; S54.01XA Injury of ulnar nerve at forearm level, right arm, initial encounter
CPT/HCPCS: 29125; 99283; 99284

== ENCOUNTER → 2022-07-01 02:32 | Outpatient (CLI) | payer BC, SELFPAY ==
--- NOTE | 2022-07-01 07:00 | DI.MRI_ITS ---
Exam(s) MR UPPER EXTREMITY RT WO EXAM: MR UPPER EXTREMITY RT WO CLINICAL HISTORY: PAIN,FOREARM BITE-ULNAR NERVE INVOLVEMENT,contusion,[id number]. TECHNIQUE: Multiplanar multisequence MRI was performed. COMPARISON: Plain films dated 14 May 2022 FINDINGS: Bones: No evidence of fracture or contusion. Soft tissues: Small focal area of ventral soft tissue edema in the distal forearm. No drainable abigail ection. No visible gas or foreign body. No abnormality along the course of the ulnar nerve. Carpal tunnel: Unremarkable. IMPRESSION: Small amount ventral soft tissue edema. DATA REPOSITORY:
== END ==
PROVIDERS: PCP Nurse Practitioner Family; Visit Provider Student in an Organized Health Care Education/Training Program
DX: M79.631 Pain in right forearm (principal); S54.01XD Injury of ulnar nerve at forearm level, right arm, subsequent encounter; W54.0XXD Bitten by dog, subsequent encounter
CPT/HCPCS: 73218

== ENCOUNTER 2022-09-24 10:53 | Emergency (ER) | payer BC, SELFPAY ==
--- NOTE | 2022-09-24 10:45 | RT.EKG_ITS ---
APPROVED REPORT Exam: Resting ECG Reason for Exam: chest pain Patient Location: E HR:75 bpm ECG Measurements Heart Rate 75 AXIS NM 164 P 52 QRSd 83 QRS 12 QT 394 T 46 QTc 439 Conclusion Sinus rhythm...normal P axis, V-rate 60- 99 Probable left atrial enlargement...P >50mS, <-0.10mV V1
[2022-09-24 11:00] VITALS: BP 128/70; PULSE 92; RESP 20; TEMP 36.5; O2SAT 99
[2022-09-24 11:19] LABS: Abs Immature Grans 0.02 10^3/uL (0.0-0.06); Absolute Basophil Count 0.05 10^3/uL (0.0-0.2); Absolute Eosinophil Count 0.05 10^3/uL (0.0-0.7); Absolute Lymphocyte Count 1.83 10^3/uL (1.2-3.4); Absolute Neutrophil Count 6.91 10^3/uL (1.2-6.7); Basophils % 0.5; Eosinophils % 0.5; HCT 43.7 % (36.0-46.0); HGB 14.7 g/dL (11.2-15.7); Immature Grans % 0.2; Lymphocytes % 19.1; MCH 30.1 pg (27.0-33.0); MCHC 33.6 % (32.0-36.0); MCV 90 fL (80-95); MPV 9.8 fL (8.0-11.0); Monocytes % 7.3; Neutrophils % 72.4; Platelet Count 310 10^3/uL (130-400); RBC 4.88 10^6/uL (3.93-5.22); RDW 12.7 % (11.7-14.6); RDW-SD 41.7 fL; WBC 9.56 10^3/uL (4.4-10.8)
[2022-09-24 11:33] VITALS: RESP 18
[2022-09-24 11:39] LABS: ALT 18 U/L (14-59); AST 15 U/L (15-37); Albumin 4.4 g/dL (3.4-5.0); Alkaline Phosphatase 69 U/L (46-116); Anion Gap 8.5 mmol/L (3-11); BUN 11 mg/dL (7-18); Bilirubin, Total 0.4 mg/dL (0.2-1.0); CO2 28.5 mmol/L (21.0-32.0); CREATININE 0.8 mg/dL (0.55-1.02); Chloride 101 mmol/L (98-107); Estimated GFR 93.12 (mL/min/1.73m2); Glucose 102 mg/dL (74-106); Magnesium 1.9 mg/dL (1.8-2.4); Potassium 3.8 mmol/L (3.5-5.1); Sodium 138 mmol/L (136-145); Total Protein 7.6 g/dL (6.4-8.2); Troponin I < 50 ng/L (<or=60)
--- NOTE | 2022-09-24 11:45 | DI.RAD_ITS ---
Exam(s) XR CHEST 2V PA LATERAL EXAM: XR CHEST 2V PA LATERAL CLINICAL HISTORY: chest pain. TECHNIQUE: 2D digital imaging was performed. COMPARISON: CR XR CHEST 2V PA LATERAL from 10/10/2018 FINDINGS: 2 views: Heart size is normal. The mediastinum is not widened. Lungs are clear. No infiltrates nor pleural effusions. IMPRESSION: No acute pulmonary findings. DATA REPOSITORY: RADIATION DOSE DELIVERED:
[2022-09-24 11:48] LABS: D-Dimer 204 ng/mlFEU (<500)
[2022-09-24] MEDS: ACETAMINOPHEN 1,000 MG/100 ML BTL 400 MG IVPB (12:15)
[2022-09-24 13:41] LABS: Troponin I < 50 ng/L (<or=60)
--- NOTE | 2022-09-24 13:59 | ED.GENADUL_ITS ---
Discharge Plan Disposition Patient Disposition: Home Condition: Stable Discharge Details Clinical Impression: Right-sided chest pain Primary Care Provider: Katerin Puente ED Provider: Melchor Christine Home Meds and New Rx's Prescriptions: Continued epinephrine [EpiPen] 0.3 mg/0.3 mL Auto-Injector 1 mg IM PRN PRN albuterol sulfate [Ventolin HFA] 90 mcg/actuation Hfa Aerosol Inhaler 2 puff inhalation PRN PRN Zyrtec 10 mg Tablet,Disintegrating 10 mg PO DAILY AM Aleve-D Sinus and Cold 220-120 mg Tablet Extended Release 12 Hr 1 tab PO PRN PRN acetaminophen [Tylenol] 325 mg Tablet 2 tab PO PRN PRN ergocalciferol (vitamin D2) 1,000 unit Capsule 4,000 unit PO DAILY naproxen [Naprosyn] 500 mg tablet 500 mg PO BID PRNQty: 20 0RF Discharge Instructions Additional Instructions: Please take naproxen as prescribed or ibuprofen. Please contact your primary care physician to arrange follow-up. Return to the ER immediately for any worsening or new concerning symptoms. Referrals: Katerin Puente [Primary Care Provider] - Discharge Data Discharge Date/Time-TO BE ENTERED AT DEPARTURE: 09/24/22 14:22 Medical Decision Making 42-year-old female here with right anterior chest pain that radiates to her back and into her neck that started yesterday afternoon after sleeping in an odd position on couch. Patient is hemodynamically stable. She is not tachycardic or hypoxic. She is neurologically intact. She has had recent respiratory symptoms including mild cough. EKG was reviewed and interpreted by me: Please see report, nondiagnostic, no STEMI. Chest x-ray was reviewed and interpreted by radiology:Heart size is normal.? The mediastinum is not widened. Lungs are clear.? No infiltrates nor pleural effusions. No acute cardiopulmonary findings. Labs reviewed and nondiagnostic. Initial troponin and delta troponin negative. D-dimer negative. IV was ordered for discomfort. Patient reassessed and remained stable. Suspect musculoskeletal pain. Plan for discharge with outpatient follow-up. All results were discussed with patient. Usual customary discharge instructions were reviewed. Lab Data Lab results reviewed: Yes I reviewed the patient's lab results. Labs: Laboratory Tests Range/Units 09/24/22 09/24/22 09/24/22 11:12 11:12 11:12 WBC (4.4-10.8) 10^3/uL 9.56 RBC (3.93-5.22) 10^6/uL 4.88 Hgb (11.2-15.7) g/dL 14.7 Hct (36.0-46.0) % 43.7 MCV (80-95) fL 90 MCH (27.0-33.0) pg 30.1 MCHC (32.0-36.0) % 33.6 RDW (11.7-14.6) % 12.7 Plt Count (130-400) 10^3/uL 310 MPV (8.0-11.0) fL 9.8 Immature Gran % 0.2 Neutrophils % 72.4 Lymphocytes % 19.1 Monocytes % 7.3 Eosinophils % 0.5 Basophils % 0.5 Nucleated RBC % (0.0-0.3) % 0.0 Absolute Neutrophils (1.2-6.7) 10^3/uL 6.91 H Absolute Lymphocytes (1.2-3.4) 10^3/uL 1.83 Absolute Monocytes (0.1-0.8) 10^3/uL 0.70 Absolute Eosinophils (0.0-0.7) 10^3/uL 0.05 Absolute Basophils (0.0-0.2) 10^3/uL 0.05 D-Dimer (<500) ng/mlFEU 204 Sodium (136-145) mmol/L 138 Potassium (3.5-5.1) mmol/L 3.8 Chloride (98-107) mmol/L 101 Carbon Dioxide (21.0-32.0) mmol/L 28.5 Anion Gap (3-11) mmol/L 8.5 BUN (7-18) mg/dL 11 Creatinine (0.55-1.02) mg/dL 0.8 Est GFR (CKD-EPI 2020) (mL/min/1.73m2) 93.12 Glucose (74-106) mg/dL 102 Calcium (8.5-10.1) mg/dL 9.0 Magnesium (1.8-2.4) mg/dL 1.9 Total Bilirubin (0.2-1.0) mg/dL 0.4 AST (15-37) U/L 15 ALT (14-59) U/L 18 Alkaline Phosphatase (46-116) U/L 69 Troponin I (<or=60) ng/L < 50 Total Protein (6.4-8.2) g/dL 7.6 Albumin (3.4-5.0) g/dL 4.4 Range/Units 09/24/22 13:20 WBC (4.4-10.8) 10^3/uL RBC (3.93-5.22) 10^6/uL Hgb (11.2-15.7) g/dL Hct (36.0-46.0) % MCV (80-95) fL MCH (27.0-33.0) pg MCHC (32.0-36.0) % RDW (11.7-14.6) % Plt Count (130-400) 10^3/uL MPV (8.0-11.0) fL Immature Gran % Neutrophils % Lymphocytes % Monocytes % Eosinophils % Basophils % Nucleated RBC % (0.0-0.3) % Absolute Neutrophils (1.2-6.7) 10^3/uL Absolute Lymphocytes (1.2-3.4) 10^3/uL Absolute Monocytes (0.1-0.8) 10^3/uL Absolute Eosinophils (0.0-0.7) 10^3/uL Absolute Basophils (0.0-0.2) 10^3/uL D-Dimer (<500) ng/mlFEU Sodium (136-145) mmol/L Potassium (3.5-5.1) mmol/L Chloride (98-107) mmol/L Carbon Dioxide (21.0-32.0) mmol/L Anion Gap (3-11) mmol/L BUN (7-18) mg/dL Creatinine (0.55-1.02) mg/dL Est GFR (CKD-EPI 2020) (mL/min/1.73m2) Glucose (74-106) mg/dL Calcium (8.5-10.1) mg/dL Magnesium (1.8-2.4) mg/dL Total Bilirubin (0.2-1.0) mg/dL AST (15-37) U/L ALT (14-59) U/L Alkaline Phosphatase (46-116) U/L Troponin I (<or=60) ng/L < 50 Total Protein (6.4-8.2) g/dL Albumin (3.4-5.0) g/dL HPI General Mode of arrival: ambulatory . Date/Time Provider Initiated Documentation: 09/24/22 10:53 . Limitations to Documentation: no limitations . Information obtained by: patient . HPI Narrative: 42-year-old female presents with chief complaint of chest pain. Patient notes right-sided chest pain radiating into her right upper back that started last night and has persisted. She notes symptoms started after she was sleeping on a couch in an odd position. Bending forward makes the pain worse. She has no associated shortness of breath. No leg swelling or calf pain. No numbness, tingling or weakness. Related Data Home Medications Medication Instructions Recorded Confirmed acetaminophen 325 mg tablet 2 tab PO PRN PRN 10/10/18 09/24/22 (Tylenol) albuterol sulfate 90 mcg/actuation 2 puff inhalation PRN PRN 10/10/18 09/24/22 aerosol inhaler (Ventolin HFA) cetirizine 10 mg disintegrating 10 mg PO DAILY AM 10/10/18 09/24/22 tablet (Zyrtec) epinephrine 0.3 mg/0.3 mL 1 mg IM PRN PRN 10/10/18 09/24/22 injection, auto-injector (EpiPen) naproxen 220 mg-pseudoephedrine 1 tab PO PRN PRN 10/10/18 09/24/22 120 mg ER tablet, extend release,12 hr (Aleve-D Sinus and Cold) ergocalciferol (vitamin D2) 1,000 4,000 unit PO DAILY 07/05/20 09/24/22 unit capsule naproxen 500 mg tablet (Naprosyn) 500 mg PO BID PRN #20 tabs 07/05/20 09/24/22 Previous Rx's Medication Instructions Recorded naproxen 500 mg tablet (Naprosyn) 500 mg PO BID PRN #20 tabs 07/05/20 Allergies Allergy/AdvReac Type Severity Reaction Status Date / Time amiodarone Allergy Unverified 09/24/22 11:01 shellfish derived Allergy Unverified 09/24/22 11:01 sumatriptan [From Imitrex] AdvReac seizure Unverified 09/24/22 11:36 General Stated Complaint: Chest Pain WES: 2 Review of Systems All systems reviewed & are unremarkable except as noted in HPI and below Constitutional Constitutional: Denies fever(s) Cardiovascular Cardiovascular: Reports chest pain, Denies palpitations and Denies dyspnea Respiratory Respiratory: Denies dyspnea Endocrine Endocrine: Denies palpitations PFSH All Active Problems Right-sided chest pain (Acute) Dog bite of right forearm (Acute) Contusion of right ulnar nerve (Acute) Medical History Asthma Migraine Seizure disorder pt states this was a single seizure, induced by first dose of Immitrex. Denies seizure disorder. Surgical History Hx of cholecystectomy Social History Smoking/Tobacco Use Status: Current every day Smoking risk assessment performed?: Yes Alcohol Intake: current Alcohol Intake frequency: a few times a month Alcohol type: wine Drug use: Never Substance use type: does not use Do you feel safe at home: Yes Do you feel safe in your relationship?: Yes Exam Const General: cooperative and no acute distress HENMT Head: normocephalic and atraumatic Mouth: moist mucous membranes Eyes Conjunctivae: normal conjunctivae Sclera: normal sclerae Neck Neck: trachea midline and supple Resp Auscultation: clear to auscultation bilaterally, no rales, no rhonchi and no wheezes Cardio Jugular venous pressure: no JVD Rate: regular rate and not tachycardic Rhythm: regular rhythm GI Palpation: soft, not firm, no guarding, no masses, not rigid and nontender Skin General skin exam: no rashes or lesions noted Neuro General: patient alert, patient awake and tone normal Cognition: normal cognition Speech: speech normal Motor: muscle tone normal throughout and strength 5/5 throughout Sensory Exam: no sensory deficits noted Extrem General: no calf tenderness and no edema Psych Appearance: grossly normal Mental Status: mental status grossly normal Speech and Movement: speech and movement normal Course Vital Signs Vital signs: Vital Signs Temperature 36.5 C 09/24/22 11:00 Pulse 92 H 09/24/22 11:00 Respiratory Rate 20 09/24/22 11:00 Blood Pressure 128/70 09/24/22 11:00 Pulse Oximetry 99 09/24/22 11:00 Temperature 36.5 C 09/24/22 11:00 Temperature Source Temporal Artery Scan 09/24/22 11:00 Pulse 92 H 09/24/22 11:00 Respiratory Rate 18 09/24/22 11:33 Respiratory Effort Non-Labored 09/24/22 11:33 Respiratory Depth Normal 09/24/22 11:33 Respiratory Pattern Normal 09/24/22 11:33 Blood Pressure 128/70 09/24/22 11:00 Blood Pressure Position Sitting 09/24/22 11:00 Pulse Oximetry 99 09/24/22 11:00 Oxygen Delivery Method Room Air 09/24/22 11:00 Oxygen Flow Rate 0 09/24/22 11:00 Pain Level 6 09/24/22 11:00 Lab/Test Results Lab/Test Results: Laboratory Tests Range/Units 09/24/22 09/24/22 09/24/22 11:12 11:12 11:12 WBC (4.4-10.8) 10^3/uL 9.56 RBC (3.93-5.22) 10^6/uL 4.88 Hgb (11.2-15.7) g/dL 14.7 Hct (36.0-46.0) % 43.7 MCV (80-95) fL 90 MCH (27.0-33.0) pg 30.1 MCHC (32.0-36.0) % 33.6 RDW (11.7-14.6) % 12.7 Plt Count (130-400) 10^3/uL 310 MPV (8.0-11.0) fL 9.8 Immature Gran % 0.2 Neutrophils % 72.4 Lymphocytes % 19.1 Monocytes % 7.3 Eosinophils % 0.5 Basophils % 0.5 Nucleated RBC % (0.0-0.3) % 0.0 Absolute Neutrophils (1.2-6.7) 10^3/uL 6.91 H Absolute Lymphocytes (1.2-3.4) 10^3/uL 1.83 Absolute Monocytes (0.1-0.8) 10^3/uL 0.70 Absolute Eosinophils (0.0-0.7) 10^3/uL 0.05 Absolute Basophils (0.0-0.2) 10^3/uL 0.05 D-Dimer (<500) ng/mlFEU 204 Sodium (136-145) mmol/L 138 Potassium (3.5-5.1) mmol/L 3.8 Chloride (98-107) mmol/L 101 Carbon Dioxide (21.0-32.0) mmol/L 28.5 Anion Gap (3-11) mmol/L 8.5 BUN (7-18) mg/dL 11 Creatinine (0.55-1.02) mg/dL 0.8 Est GFR (CKD-EPI 2020) (mL/min/1.73m2) 93.12 Glucose (74-106) mg/dL 102 Calcium (8.5-10.1) mg/dL 9.0 Magnesium (1.8-2.4) mg/dL 1.9 Total Bilirubin (0.2-1.0) mg/dL 0.4 AST (15-37) U/L 15 ALT (14-59) U/L 18 Alkaline Phosphatase (46-116) U/L 69 Troponin I (<or=60) ng/L < 50 Total Protein (6.4-8.2) g/dL 7.6 Albumin (3.4-5.0) g/dL 4.4 Range/Units 09/24/22 13:20 WBC (4.4-10.8) 10^3/uL RBC (3.93-5.22) 10^6/uL Hgb (11.2-15.7) g/dL Hct (36.0-46.0) % MCV (80-95) fL MCH (27.0-33.0) pg MCHC (32.0-36.0) % RDW (11.7-14.6) % Plt Count (130-400) 10^3/uL MPV (8.0-11.0) fL Immature Gran % Neutrophils % Lymphocytes % Monocytes % Eosinophils % Basophils % Nucleated RBC % (0.0-0.3) % Absolute Neutrophils (1.2-6.7) 10^3/uL Absolute Lymphocytes (1.2-3.4) 10^3/uL Absolute Monocytes (0.1-0.8) 10^3/uL Absolute Eosinophils (0.0-0.7) 10^3/uL Absolute Basophils (0.0-0.2) 10^3/uL D-Dimer (<500) ng/mlFEU Sodium (136-145) mmol/L Potassium (3.5-5.1) mmol/L Chloride (98-107) mmol/L Carbon Dioxide (21.0-32.0) mmol/L Anion Gap (3-11) mmol/L BUN (7-18) mg/dL Creatinine (0.55-1.02) mg/dL Est GFR (CKD-EPI 2020) (mL/min/1.73m2) Glucose (74-106) mg/dL Calcium (8.5-10.1) mg/dL Magnesium (1.8-2.4) mg/dL Total Bilirubin (0.2-1.0) mg/dL AST (15-37) U/L ALT (14-59) U/L Alkaline Phosphatase (46-116) U/L Troponin I (<or=60) ng/L < 50 Total Protein (6.4-8.2) g/dL Albumin (3.4-5.0) g/dL PAWSS Have you Been Recently Intoxicated or Drunk Within the Last 30 days?: No Have you Ever Experienced Previous Episodes of Alcohol Withdrawal?: No Have you ever Experienced Withdrawal Seizures?: No Have you ever Experienced Delirium Tremens(DT)s?: No Have you ever undergone Alcohol Rehabilitation Treatment (i.e, in ot outaz tient treatment programs)?: No Have you ever Experienced Blackouts?: No Have you ever Combined Alcohol with other Downers within the last 90 days?: No Have you ever Combined Alcohol with any other Substance of Abuse during the last 90 days?: No Positive Blood Alcohol level on Presentation? [PCS.BAL]: No Evidence of Increased Autonomic Activity (i.e. HR>120, tremor, sweating, agitation, nausea)?: No Result: 0
[2022-09-24 14:15] VITALS: BP 130/69; PULSE 73; O2SAT 99
[2022-09-25 13:02] LABS: COVID-19 RT-PCR UVMMC Result Negative (Negative)
== END 2022-09-24 14:22 | disposition home or self-care (01) ==
PROVIDERS: Emergency Provider Student in an Organized Health Care Education/Training Program; PCP Nurse Practitioner Family
DX: G89.11 Acute pain due to trauma (principal); R07.89 Other chest pain; J45.909 Unspecified asthma, uncomplicated; Z20.822 Contact with and (suspected) exposure to COVID-19; X50.1XXA Overexertion from prolonged static or awkward postures, initial encounter
CPT/HCPCS: 36415; 80053; 93005; 96374; 99284; U0003; 71046; 83735; 84484; 85025; 85379; 93010; 99285; J0131

== ENCOUNTER 2023-04-15 01:14 | Outpatient (CLI) | payer BC, SELFPAY ==
--- NOTE | 2023-04-15 07:30 | DI.MAMMO_ITS ---
Exam(s) MAMMO SCREENING EXAM: MAMMO SCREENING CLINICAL HISTORY: SCREENING, Z12.31 TECHNIQUE: Bilateral full field digital CC and MLO mammographic images were obtained with 3D tomosyn thesis and utilizing computer aided detection (CAD). COMPARISON: Available for comparison. FINDINGS: Masses/Architectural Distortion: The nodules in the upper outer quadrant of the right breast are stab le. No suspicious nodules or areas of architectural distortion are seen. Microcalcifications: No suspicious pleomorphic-type are seen. Skin Thickening/Nipple Retraction: None. IMPRESSION: 1. No significant interval change with no specific features of malignancy noted. 2. Unless there is more urgent need, screening mammography is recommended, as per [employer] [place] [employer] guidelines. BI-RADS Category 2 - Benign Findings Breast Density - Category C - Heterogeneously dense Breast density category C or D implies that the patient has dense breast tissue. Dense breast tissue is very common and is not abnormal but dense breast tissue can make it harder to find cancer on a ma mmogram. Also, dense breast tissue may increase their breast cancer risk. This information about the result of the mammogram report was provided to the patient to raise their awareness. Use this report when you speak with the patient about their risks for breast cancer, which includes their family hist ory. At that time, you may recommend for more screening tests (Ultrasound or MRI) as they might be us eful based on their risk. A negative radiographic report should not delay biopsy if a dominant or clinically suspicious mass is present. Up to ten percent of cancers are not identified on mammography. A negative report may reinforce clinical impression. Adenosis and dense breasts may obscure an underlying neoplasm. False positive reports average 6 to 10%. Patient will receive a letter notifying them of these results.
== END 2023-04-15 01:34 ==
LOC: DI 01:14
PROVIDERS: PCP Nurse Practitioner Family; Visit Provider Nurse Practitioner Family
DX: Z12.31 Encounter for screening mammogram for malignant neoplasm of breast (principal)
CPT/HCPCS: 77063; 77067

== ENCOUNTER 2023-04-24 19:36 | Outpatient (REF) | payer BC, SELFPAY ==
[2023-04-24 17:46] LABS: Vitamin D 25 Total 20.3 ng/mL (30-100)
== END 2023-04-24 19:37 | disposition home or self-care (01) ==
LOC: NCHCN 19:36
PROVIDERS: PCP Nurse Practitioner Family; Visit Provider Nurse Practitioner Family
DX: E55.9 Vitamin D deficiency, unspecified (principal)
CPT/HCPCS: 82306

== ENCOUNTER 2023-05-28 14:24 | Outpatient (REF) | payer BC, SELFPAY ==
--- NOTE | 2023-05-28 08:00 | PAPFT_PTH ---
PATIENT: Cristela Cuenca LOC: [facility] U#:[id number] AGE/SX: 43/F ROOM: RE05/28/[address]: Katerin Puente : 1980 BED: DIS: 05/28/2023 SPEC #: [id number] RECD: 05/28/23 18:29 STATUS: DAVID REHermann #: [id number] AUTSYN: 05/28/23 08:[address]: Katerin Puente DEPT: [facility] Cytology RECD BY: Arlene Fuentes Tissues: 1 - CX/ENDOCX FOR PAP SMEARS Procedures: PAP THIN PREP/UVM Screening HPV DNA PROBE Comments: [id number]
== END 2023-05-28 14:25 | disposition home or self-care (01) ==
LOC: NCHCN 14:24
PROVIDERS: PCP Nurse Practitioner Family; Visit Provider Nurse Practitioner Family
DX: Z12.4 Encounter for screening for malignant neoplasm of cervix (principal); Z00.00 Encounter for general adult medical examination without abnormal findings; Z11.51 Encounter for screening for human papillomavirus (HPV); Z01.419 Encounter for gynecological examination (general) (routine) without abnormal findings
CPT/HCPCS: 88142; 87624

== ENCOUNTER 2023-08-10 13:25 | Emergency (ER) | payer BC, SELFPAY ==
[2023-08-10 13:29] VITALS: BP 159/92; PULSE 84; RESP 14; TEMP 36.6; O2SAT 99
--- NOTE | 2023-08-10 13:46 | W.ED.GENAD ---
Discharge Plan Disposition Patient Disposition: Home Condition: Good Discharge Details Clinical Impression: Acute otitis media, right Primary Care Provider: Katerin Puente ED Provider: Leena Reaves Home Meds and New Rx's Prescriptions: New amoxicillin 875 mg tablet 875 mg PO Q12H Qty: 14 0RF No Action valacyclovir 500 mg tablet 500 mg PO DAILY Rx Instructions: take 1-2 tab daily PRN triamcinolone acetonide [Nasacort] 55 mcg aerosol,spray 1 spray intranasal DAILY PRN Rx Instructions: administer into each nostril multivitamin [Daily Multi-Vitamin] Tablet 1 tab PO DAILY epinephrine [EpiPen] 0.3 mg/0.3 mL Auto-Injector 1 mg IM PRN PRN albuterol sulfate [Ventolin HFA] 90 mcg/actuation Hfa Aerosol Inhaler 2 puff inhalation PRN PRN Zyrtec 10 mg Tablet,Disintegrating 10 mg PO DAILY AM Aleve-D Sinus and Cold 220-120 mg Tablet Extended Release 12 Hr 1 tab PO PRN PRN acetaminophen [Tylenol] 325 mg Tablet 2 tab PO PRN PRN ergocalciferol (vitamin D2) 1,000 unit Capsule 4,000 unit PO DAILY naproxen [Naprosyn] 500 mg tablet 500 mg PO BID PRNQty: 20 0RF Discharge Instructions Instructions: Ear Infection (ED) Additional Instructions: Take the amoxicillin twice a day for the next 7 days. Call your ENT tomorrow to discuss your visit today. Return to the emergency department for worsening symptoms, including fever, neck pain, difficulty swallowing, or if you have any other concerns. Referrals: Katerin Puente [Primary Care Provider] - [facility] General Date/Time Provider Initiated Documentation: 08/10/23 13:34. Related Data Home Medications Medication Instructions Recorded Confirmed acetaminophen 325 mg tablet 2 tab PO PRN PRN 10/10/18 01/29/23 (Tylenol) albuterol sulfate 90 mcg/actuation 2 puff inhalation PRN PRN 10/10/18 01/29/23 aerosol inhaler (Ventolin HFA) cetirizine 10 mg disintegrating 10 mg PO DAILY AM 10/10/18 01/29/23 tablet (Zyrtec) epinephrine 0.3 mg/0.3 mL 1 mg IM PRN PRN 10/10/18 01/29/23 injection, auto-injector (EpiPen) naproxen 220 mg-pseudoephedrine 1 tab PO PRN PRN 10/10/18 01/29/23 120 mg ER tablet, extend release,12 hr (Aleve-D Sinus and Cold) ergocalciferol (vitamin D2) 1,000 4,000 unit PO DAILY 07/05/20 01/29/23 unit capsule naproxen 500 mg tablet (Naprosyn) 500 mg PO BID PRN #20 tabs 07/05/20 01/29/23 multivitamin (Daily Multi-Vitamin 1 tab PO DAILY 12/17/22 01/29/23 tablet) triamcinolone acetonide 55 mcg 1 spray intranasal DAILY PRN 12/17/22 01/29/23 nasal spray aerosol (Nasacort) valacyclovir 500 mg tablet 500 mg PO DAILY 12/17/22 01/29/23 amoxicillin 875 mg tablet 875 mg PO Q12H #14 tabs 08/10/23 Previous Rx's Medication Instructions Recorded naproxen 500 mg tablet (Naprosyn) 500 mg PO BID PRN #20 tabs 07/05/20 amoxicillin 875 mg tablet 875 mg PO Q12H #14 tabs 08/10/23 Allergies Allergy/AdvReac Type Severity Reaction Status Date / Time amiodarone Allergy Unverified 01/29/23 13:13 shellfish derived Allergy Unverified 01/29/23 13:13 sumatriptan [From Imitrex] AdvReac seizure Unverified 01/29/23 13:13 General Stated Complaint: EarProblem WES: 4 PFSH All Active Problems (Updated 08/10/23 @ 13:48 by Leena Reaves MD) Acute otitis media, right (Acute) Dog bite of right forearm (Acute) Contusion of right ulnar nerve (Acute) Medical History Asthma Asthma, intermittent Ear pain, right Elevated hemoglobin A1c Family history of alcoholism Hx of herpes zoster Migraine Obesity Plantar wart Seizure disorder pt states this was a single seizure, induced by first dose of Immitrex. Denies seizure disorder. Sinus infection Vitamin D deficiency Surgical History Hx of cholecystectomy Social History Smoking/Tobacco Use Status: Current every day Smoking risk assessment performed?: Yes Alcohol Intake: current Alcohol Intake frequency: a few times a month Alcohol type: wine Drug use: Never Substance use type: does not use Do you feel safe at home: Yes Do you feel safe in your relationship?: Yes Course Vital Signs Vital signs: Vital Signs Temperature 36.6 C 08/10/23 13:29 Pulse 84 08/10/23 13:29 Respiratory Rate 14 08/10/23 13:29 Blood Pressure 159/92 H 08/10/23 13:29 Pulse Oximetry 99 08/10/23 13:29 Temperature 36.6 C 08/10/23 13:29 Temperature Source Skin 08/10/23 13:29 Pulse 84 08/10/23 13:29 Respiratory Rate 14 08/10/23 13:29 Respiratory Effort Normal 08/10/23 13:33 Blood Pressure 159/92 H 08/10/23 13:29 Blood Pressure Position Sitting 08/10/23 13:29 Pulse Oximetry 99 08/10/23 13:29 Oxygen Delivery Method Room Air 08/10/23 13:29 Oxygen Flow Rate 0 08/10/23 13:29 Pain Level 8 08/10/23 13:33
--- NOTE | 2023-08-10 13:51 | ED.GENADUL_ITS ---
Discharge Plan Disposition Patient Disposition: Home Condition: Good Discharge Details Clinical Impression: Acute otitis media, right Primary Care Provider: Katerin Puente ED Provider: Leena Reaves Home Meds and New Rx's Prescriptions: New amoxicillin 875 mg tablet 875 mg PO Q12H Qty: 14 0RF No Action valacyclovir 500 mg tablet 500 mg PO DAILY Rx Instructions: take 1-2 tab daily PRN triamcinolone acetonide [Nasacort] 55 mcg aerosol,spray 1 spray intranasal DAILY PRN Rx Instructions: administer into each nostril multivitamin [Daily Multi-Vitamin] Tablet 1 tab PO DAILY epinephrine [EpiPen] 0.3 mg/0.3 mL Auto-Injector 1 mg IM PRN PRN albuterol sulfate [Ventolin HFA] 90 mcg/actuation Hfa Aerosol Inhaler 2 puff inhalation PRN PRN Zyrtec 10 mg Tablet,Disintegrating 10 mg PO DAILY AM Aleve-D Sinus and Cold 220-120 mg Tablet Extended Release 12 Hr 1 tab PO PRN PRN acetaminophen [Tylenol] 325 mg Tablet 2 tab PO PRN PRN ergocalciferol (vitamin D2) 1,000 unit Capsule 4,000 unit PO DAILY naproxen [Naprosyn] 500 mg tablet 500 mg PO BID PRNQty: 20 0RF Discharge Instructions Instructions: Ear Infection (ED) Additional Instructions: Take the amoxicillin twice a day for the next 7 days. Call your ENT tomorrow to discuss your visit today. Return to the emergency department for worsening symptoms, including fever, neck pain, difficulty swallowing, or if you have any other concerns. Referrals: Katerin Puente [Primary Care Provider] - Medical Decision Making 43yo F with hx recurrent otitis presenting with right ear pain consistent with prior infections. Follows with ENT. Vital signs reassuring on arrival, denies systemic symptoms. Well appearing. No indication of deeps space infection. Not septic. Will not get labs or CT scan. Right TM bulging, slightly erythematous. Given history, will treat with amoxicillin. Discharged home; discharge instructions including return precautions were reviewed with patient who verbalized understanding. All questions were answered and they are in full agreement with the plan. HPI General Mode of arrival: ambulatory . Date/Time Provider Initiated Documentation: 08/10/23 13:34 . Limitations to Documentation: no limitations . Information obtained by: patient . HPI Narrative: 43yo F with hx recurrent otitis presenting with right ear pain consistent with prior infections. Follows with ENT. Cold symptoms 10 days ago, improving, but now with right ear pain radiating into her neck. Home treatments/decongestants ineffective. Now also has some discomfort with swallowing. No discharge from ear. States symptoms are similar to prior infections which have typically responded to amoxicillin. Would have gone to urgent care but they are closed today. Systemically well with no fevers, chill, rash, nausea, vomiting, difficulty breathing, difficulty with secretions, or other concerns. Related Data Home Medications Medication Instructions Recorded Confirmed acetaminophen 325 mg tablet 2 tab PO PRN PRN 10/10/18 01/29/23 (Tylenol) albuterol sulfate 90 mcg/actuation 2 puff inhalation PRN PRN 10/10/18 01/29/23 aerosol inhaler (Ventolin HFA) cetirizine 10 mg disintegrating 10 mg PO DAILY AM 10/10/18 01/29/23 tablet (Zyrtec) epinephrine 0.3 mg/0.3 mL 1 mg IM PRN PRN 10/10/18 01/29/23 injection, auto-injector (EpiPen) naproxen 220 mg-pseudoephedrine 1 tab PO PRN PRN 10/10/18 01/29/23 120 mg ER tablet, extend release,12 hr (Aleve-D Sinus and Cold) ergocalciferol (vitamin D2) 1,000 4,000 unit PO DAILY 07/05/20 01/29/23 unit capsule naproxen 500 mg tablet (Naprosyn) 500 mg PO BID PRN #20 tabs 07/05/20 01/29/23 multivitamin (Daily Multi-Vitamin 1 tab PO DAILY 12/17/22 01/29/23 tablet) triamcinolone acetonide 55 mcg 1 spray intranasal DAILY PRN 12/17/22 01/29/23 nasal spray aerosol (Nasacort) valacyclovir 500 mg tablet 500 mg PO DAILY 12/17/22 01/29/23 amoxicillin 875 mg tablet 875 mg PO Q12H #14 tabs 08/10/23 Previous Rx's Medication Instructions Recorded naproxen 500 mg tablet (Naprosyn) 500 mg PO BID PRN #20 tabs 07/05/20 amoxicillin 875 mg tablet 875 mg PO Q12H #14 tabs 08/10/23 Allergies Allergy/AdvReac Type Severity Reaction Status Date / Time amiodarone Allergy Unverified 01/29/23 13:13 shellfish derived Allergy Unverified 01/29/23 13:13 sumatriptan [From Imitrex] AdvReac seizure Unverified 01/29/23 13:13 General Stated Complaint: EarProblem WES: 4 Review of Systems Narrative: see HPI PFSH All Active Problems (Updated 08/10/23 @ 13:48 by Leena Reaves MD) Acute otitis media, right (Acute) Dog bite of right forearm (Acute) Contusion of right ulnar nerve (Acute) Medical History Asthma Asthma, intermittent Ear pain, right Elevated hemoglobin A1c Family history of alcoholism Hx of herpes zoster Migraine Obesity Plantar wart Seizure disorder pt states this was a single seizure, induced by first dose of Immitrex. Denies seizure disorder. Sinus infection Vitamin D deficiency Surgical History Hx of cholecystectomy Social History Smoking/Tobacco Use Status: Current every day Smoking risk assessment performed?: Yes Alcohol Intake: current Alcohol Intake frequency: a few times a month Alcohol type: wine Drug use: Never Substance use type: does not use Do you feel safe at home: Yes Do you feel safe in your relationship?: Yes Exam Narrative Exam Narrative: General: Alert, well appearing, well nourished, in no acute distress. Head: Normocephalic, atraumatic Neck: Trachea midline, Neck supple. Tender cervical lymphadenopathy on right. ENT: MMM. No oropharygeal lesions or exudate. Uvula midline. No trismus. Left TM clear. Right TM bulging, slightly injected. Cardiac: No cyanosis. Resp: No respiratory distress. Speaking in full sentences. Abd: Nondistended. Extremities: No deformities. No peripheral edema. Neurologic: GCS 15. Moves all extremities freely against gravity Course Vital Signs Vital signs: Vital Signs Temperature 36.6 C 08/10/23 13:29 Pulse 84 08/10/23 13:29 Respiratory Rate 14 08/10/23 13:29 Blood Pressure 159/92 H 08/10/23 13:29 Pulse Oximetry 99 08/10/23 13:29 Temperature 36.6 C 08/10/23 13:29 Temperature Source Skin 08/10/23 13:29 Pulse 84 08/10/23 13:29 Respiratory Rate 14 08/10/23 13:29 Respiratory Effort Normal 08/10/23 13:33 Blood Pressure 159/92 H 08/10/23 13:29 Blood Pressure Position Sitting 08/10/23 13:29 Pulse Oximetry 99 08/10/23 13:29 Oxygen Delivery Method Room Air 08/10/23 13:29 Oxygen Flow Rate 0 08/10/23 13:29 Pain Level 8 08/10/23 13:33
== END 2023-08-10 13:59 | disposition home or self-care (01) ==
PROVIDERS: Emergency Provider Student in an Organized Health Care Education/Training Program; PCP Nurse Practitioner Family
DX: H66.91 Otitis media, unspecified, right ear (principal)
CPT/HCPCS: 99283; 99284

== ENCOUNTER 2023-11-22 10:58 | Emergency (ER) | payer BC, SELFPAY ==
[2023-11-22 11:04] VITALS: BP 134/62; PULSE 86; RESP 18; TEMP 37.4; O2SAT 99
--- NOTE | 2023-11-22 11:45 | DI.CT_ITS ---
Exam(s) CT ABDOMEN PELVIS W EXAM: CT ABDOMEN PELVIS W CLINICAL HISTORY: rlq pain. TECHNIQUE: Imaging Protocol: Axial computed tomography images with coronal and sagittal reformatted images were created and reviewed CONTRAST MATERIAL: Intravenous: Omnipaque-350 100cc Oral: None COMPARISON: No exams were available for comparison FINDINGS: VISUALIZED LUNG BASES: No nodules nor pleural effusions evident. ABDOMEN: There is no ascites. LIVER: There are no focal hepatic lesions evident. No dilated intrahepatic ducts. GALLBLADDER/BILIARY: The gallbladder surgically absent. CBD is not dilated. PANCREAS: No evidence of pancreatic mass nor dilatation of the pancreatic duct. SPLEEN: Spleen is not enlarged. No obvious intrasplenic lesions. Splenic and portal veins are paten t. ADRENALS: There are no significant adrenal masses. KIDNEYS:There is a benign cyst in each kidney measuring 1.8 x 1.7 cm in the right kidney and 1.7 x 1. 6 cm in left kidney. These do not require further workup. There are no solid renal masses. No calc nick. No hydronephrosis.. ABDOMINAL AORTA: Abdominal aorta is not enlarged. LYMPH NODES:There is no retroperitoneal nor paraaortic adenopathy. ABDOMINAL WALL: No evidence of significant anterior abdominal wall nor inguinal hernia. GI: There is no evidence of bowel obstruction, free air, nor abscess. PELVIS: GI: No evidence of appendicitis.There are a few sigmoid diverticuli but no evidence of acute divertic ulitis. LYMPH NODES: There is no intrapelvic nor inguinal adenopathy. REPRODUCTIVE: Uterus appears unremarkable. There is a cyst in the right ovary measuring 1.9 x 1.8 cm . No surrounding free fluid. Smaller follicular cysts are noted in the left ovary URINARY BLADDER: No calculi nor obvious masses evident OSSEOUS: No fractures and no significant osseous lesions. IMPRESSION: 1. No evidence of acute appendicitis. 2. Gallbladder surgically absent. The biliary tree is not dilated. 3. There is a 1.9 x 1.8 cm cyst in the right ovary, probably dominant follicular. May be responsible for this patient's right lower quadrant pain. Smaller follicular cysts in the left ovary. No free fluid. RADIATION DOSE DELIVERED: 1,070.98mGy.cm Total DLP DATA REPOSITORY: All CT scans at this facility are submitted to the National Radiology Data Registry (NRDR) Dose Index Registry (DIR) with the [employer] (A[employer]). RADIATION OPTIMIZATION: All CT scans at this facility use at least one of these dose optimization te chniques: automated exposure control; mA and/or kV adjustment per patient size (includes targeted exa ms where dose is matched to clinical indication); or iterative reconstruction.
[2023-11-22 11:51] LABS: Abs Immature Grans 0.02 10^3/uL (0.0-0.06); Absolute Basophil Count 0.05 10^3/uL (0.0-0.2); Absolute Eosinophil Count 0.07 10^3/uL (0.0-0.7); Absolute Lymphocyte Count 2.14 10^3/uL (1.2-3.4); Absolute Monocyte Count 0.92 10^3/uL (0.1-0.8); Absolute Neutrophil Count 6.05 10^3/uL (1.2-6.7); Basophils % 0.5; Eosinophils % 0.8; HCT 42.8 % (36.0-46.0); HGB 14.1 g/dL (11.2-15.7); Immature Grans % 0.2; Lymphocytes % 23.1; MCH 28.7 pg (27.0-33.0); MCHC 32.9 % (32.0-36.0); MCV 87 fL (80-95); MPV 10.1 fL (8.0-11.0); Monocytes % 9.9; Neutrophils % 65.5; Platelet Count 340 10^3/uL (130-400); RBC 4.91 10^6/uL (3.93-5.22); RDW 12.7 % (11.7-14.6); RDW-SD 40.3 fL; WBC 9.25 10^3/uL (4.4-10.8)
[2023-11-22] MEDS: Acetaminophen 500 MG TAB 1000 MG PO (11:54)
[2023-11-22 11:55] LABS: Bilirubin Negative (Negative); Blood Negative (Negative); Clarity Clear (Clear); Glucose Negative (Negative); Ketones Negative (Negative); Leukocyte Esterase Negative (Negative); Nitrite Negative (Negative); Urobilinogen 0.2 mg/dL (Up to 0.2)
[2023-11-22] MEDS: Omnipaque 350 MG/ML 100 ML BTL IJ (12:06)
[2023-11-22 12:09] LABS: ALT 17 U/L (14-59); AST 12 U/L (15-37); Albumin 3.9 g/dL (3.4-5.0); Alkaline Phosphatase 70 U/L (46-116); BUN 13 mg/dL (7-18); Bilirubin, Total 0.2 mg/dL (0.2-1.0); CREATININE 0.7 mg/dL (0.55-1.02); Calcium 8.7 mg/dL (8.5-10.1); Chloride 102 mmol/L (98-107); Estimated GFR 108.62 (mL/min/1.73m2); Glucose 94 mg/dL (74-106); Potassium 3.6 mmol/L (3.5-5.1); Sodium 139 mmol/L (136-145); Total Protein 7.3 g/dL (6.4-8.2)
[2023-11-22 12:13] LABS: C-Reactive Protein < 0.50 mg/dL (<or=0.5)
[2023-11-22] MEDS: Normal Saline - Diluent 50 ML VIAL IJ (12:20)
--- NOTE | 2023-11-22 12:51 | DI.VRAD_ITS ---
PROCEDURE INFORMATION: Exam: CT Abdomen And Pelvis With Contrast Exam date and time: 11/22/2023 12:13 PM Age: 43 years old Clinical indication: Other: Rlq pain TECHNIQUE: Imaging protocol: Computed tomography of the abdomen and pelvis with contrast. Radiation optimization: All CT scans at this facility use at least one of these dose optimization techniques: automated exposure control; mA and/or kV adjustment per patient size (includes targeted exams where dose is matched to clinical indication); or iterative reconstruction. Contrast material: OMNI 350; Contrast volume: 100 ml; Contrast route: INTRAVENOUS (IV); COMPARISON: CR XR CHEST 2V PA LATERAL 09/24/2022 12:09 PM FINDINGS: Liver: Normal. No mass. Gallbladder and bile ducts: Gallbladder is surgically removed. Pancreas: Normal. No ductal dilation. Spleen: Normal. No splenomegaly. Adrenal glands: Normal. No mass. Kidneys and ureters: Benign-appearing cysts in both kidneys measuring 18 mm and 16 mm. Stomach and bowel: Unremarkable. No obstruction. No mucosal thickening. Appendix: The appendix is visualized and appears normal. Intraperitoneal space: Unremarkable. No free air. No significant fluid collection. Vasculature: Unremarkable. No abdominal aortic aneurysm. Lymph nodes: Unremarkable. No enlarged lymph nodes. Urinary bladder: Unremarkable as visualized. Reproductive: Dominant follicle right ovary. Bones/joints: Unremarkable. No acute fracture. Soft tissues: Unremarkable. IMPRESSION: 1. The appendix is visualized and appears normal. 2. No CT findings suggestive of obstructive uropathy. Benign-appearing cysts in both kidneys. 3. Gallbladder is surgically removed. Dictated and Authenticated by: Salome Tesfaye MD. Ordering:BILLY Jacobs MD
[2023-11-22] MEDS: Ketorolac 15 MG/ML VIAL 7.5 MG IVP (13:29)
--- NOTE | 2023-11-22 13:34 | ED.GENADUL_ITS ---
Discharge Plan Disposition Patient Disposition: Home Discharge Details Clinical Impression: Abdominal pain, RLQ Primary Care Provider: Katerin Puente ED Provider: Arlene Sierra Home Meds and New Rx's Prescriptions: New cyclobenzaprine 10 mg tablet 10 mg PO TID PRNQty: 15 0RF Continued valacyclovir 500 mg tablet 500 mg PO DAILY Rx Instructions: take 1-2 tab daily PRN triamcinolone acetonide [Nasacort] 55 mcg aerosol,spray 1 spray intranasal DAILY PRN Rx Instructions: administer into each nostril multivitamin [Daily Multi-Vitamin] Tablet 1 tab PO DAILY epinephrine [EpiPen] 0.3 mg/0.3 mL Auto-Injector 1 mg IM PRN PRN albuterol sulfate [Ventolin HFA] 90 mcg/actuation Hfa Aerosol Inhaler 2 puff inhalation PRN PRN Zyrtec 10 mg Tablet,Disintegrating 10 mg PO DAILY AM Aleve-D Sinus and Cold 220-120 mg Tablet Extended Release 12 Hr 1 tab PO PRN PRN acetaminophen [Tylenol] 325 mg Tablet 2 tab PO PRN PRN ergocalciferol (vitamin D2) 1,000 unit Capsule 4,000 unit PO DAILY naproxen [Naprosyn] 500 mg tablet 500 mg PO BID PRNQty: 20 0RF Discharge Instructions Instructions: Abdominal Pain (ED) Additional Instructions: warm compresses to abdomen take motrin/tylenol as needed for pain take flexeril for pain uncontrolled with motrin/tylenol i've ordered an outpatient US, please call US to schedule the appt. on friday return earlier should you have new or worsening complaints Referrals: Katerin Puente [Primary Care Provider] - 2 days HPI General Date/Time Provider Initiated Documentation: 11/22/23 11:32 . HPI Narrative: This 43-year-old female presents with report of RLQ abdominal pain for the past week. Worsening reportedly in last 2-3 days. Denies any risk of sexually transmitted disease. Denies any dysuria or frequency. Does denies any chance of . Initially presumed this was ovulation, however given the persistence of symptoms wanted to be evaluated. Denies any known injuries. Denies nausea or vomiting. Related Data Home Medications Medication Instructions Recorded Confirmed acetaminophen 325 mg tablet 2 tab PO PRN PRN 10/10/18 11/22/23 (Tylenol) albuterol sulfate 90 mcg/actuation 2 puff inhalation PRN PRN 10/10/18 11/22/23 aerosol inhaler (Ventolin HFA) cetirizine 10 mg disintegrating 10 mg PO DAILY AM 10/10/18 11/22/23 tablet (Zyrtec) epinephrine 0.3 mg/0.3 mL 1 mg IM PRN PRN 10/10/18 11/22/23 injection, auto-injector (EpiPen) naproxen 220 mg-pseudoephedrine 1 tab PO PRN PRN 10/10/18 11/22/23 120 mg ER tablet, extend release,12 hr (Aleve-D Sinus and Cold) ergocalciferol (vitamin D2) 1,000 4,000 unit PO DAILY 07/05/20 11/22/23 unit capsule naproxen 500 mg tablet (Naprosyn) 500 mg PO BID PRN #20 tabs 07/05/20 11/22/23 multivitamin (Daily Multi-Vitamin 1 tab PO DAILY 12/17/22 11/22/23 tablet) triamcinolone acetonide 55 mcg 1 spray intranasal DAILY PRN 12/17/22 11/22/23 nasal spray aerosol (Nasacort) valacyclovir 500 mg tablet 500 mg PO DAILY 12/17/22 11/22/23 cyclobenzaprine 10 mg tablet 10 mg PO TID PRN #15 tabs 11/22/23 Previous Rx's Medication Instructions Recorded naproxen 500 mg tablet (Naprosyn) 500 mg PO BID PRN #20 tabs 07/05/20 cyclobenzaprine 10 mg tablet 10 mg PO TID PRN #15 tabs 11/22/23 Allergies Allergy/AdvReac Type Severity Reaction Status Date / Time amiodarone Allergy Other (See Unverified 11/22/23 11:06 Comment) shellfish derived Allergy Anaphylaxis Unverified 11/22/23 11:06 sumatriptan [From Imitrex] AdvReac seizure Unverified 11/22/23 11:06 General Stated Complaint: Abd Prob WES: 3 Course Vital Signs Vital signs: Vital Signs Temperature 37.4 C 11/22/23 11:04 Pulse 86 11/22/23 11:04 Respiratory Rate 18 11/22/23 11:04 Blood Pressure 134/62 11/22/23 11:04 Pulse Oximetry 99 11/22/23 11:04 Temperature 37.4 C 11/22/23 11:04 Temperature Source Skin 11/22/23 11:04 Pulse 86 11/22/23 11:04 Respiratory Rate 18 11/22/23 11:04 Respiratory Effort Normal 11/22/23 12:02 Blood Pressure 134/62 11/22/23 11:04 Blood Pressure Position Sitting 11/22/23 11:04 Pulse Oximetry 99 11/22/23 11:04 Oxygen Delivery Method Room Air 11/22/23 11:04 Oxygen Flow Rate 0 11/22/23 11:04 Pain Level 6 11/22/23 12:02 Lab/Test Results Lab/Test Results: Laboratory Tests Range/Units 11/22/23 11/22/23 11:18 11:30 WBC (4.4-10.8) 10^3/uL 9.25 RBC (3.93-5.22) 10^6/uL 4.91 Hgb (11.2-15.7) g/dL 14.1 Hct (36.0-46.0) % 42.8 MCV (80-95) fL 87 MCH (27.0-33.0) pg 28.7 MCHC (32.0-36.0) % 32.9 RDW (11.7-14.6) % 12.7 Plt Count (130-400) 10^3/uL 340 MPV (8.0-11.0) fL 10.1 Immature Gran % 0.2 Neutrophils % 65.5 Lymphocytes % 23.1 Monocytes % 9.9 Eosinophils % 0.8 Basophils % 0.5 Nucleated RBC % (0.0-0.3) % 0.0 Absolute Neutrophils (1.2-6.7) 10^3/uL 6.05 Absolute Lymphocytes (1.2-3.4) 10^3/uL 2.14 Absolute Monocytes (0.1-0.8) 10^3/uL 0.92 H Absolute Eosinophils (0.0-0.7) 10^3/uL 0.07 Absolute Basophils (0.0-0.2) 10^3/uL 0.05 Sodium (136-145) mmol/L 139 Potassium (3.5-5.1) mmol/L 3.6 Chloride (98-107) mmol/L 102 Carbon Dioxide (21.0-32.0) mmol/L 28.0 Anion Gap (3-11) mmol/L 9.0 BUN (7-18) mg/dL 13 Creatinine (0.55-1.02) mg/dL 0.7 Est GFR (CKD-EPI 2020) (mL/min/1.73m2) 108.62 Glucose (74-106) mg/dL 94 Calcium (8.5-10.1) mg/dL 8.7 Total Bilirubin (0.2-1.0) mg/dL 0.2 AST (15-37) U/L 12 L ALT (14-59) U/L 17 Alkaline Phosphatase (46-116) U/L 70 C-Reactive Protein (<or=0.5) mg/dL < 0.50 Total Protein (6.4-8.2) g/dL 7.3 Albumin (3.4-5.0) g/dL 3.9 Urine Color (Yellow) Yellow Urine Clarity (Clear) Clear Urine pH (5-8) 7.0 Ur Specific [place] (1.005-1.025) 1.010 Urine Protein (Neg-Trace) mg/dL Negative Urine Ketones (Negative) mg/dL Negative Urine Blood (Negative) Negative Urine Nitrite (Negative) Negative Urine Bilirubin (Negative) Negative Urine Urobilinogen (Up to 0.2) mg/dL 0.2 Ur Leukocyte Esterase (Negative) Negative Urine Glucose (Negative) mg/dL Negative POC- Test(urine) Negative Medical Decision Making This 43-year-old female presents with right lower quadrant pain. States that the pain started approximately 1 week ago Tender in the right lower quadrant therefore CT was ordered for further evaluation, no evidence of acute abnormality per radiology interpretation my review Dominant ovarian follicle documented no leukocytosis, CRP within normal limits Ultrasound ordered in the outpatient setting, patient has an appointment with PCP next week, encouraged to keep this appointment Given prescription for Flexeril as needed for musculoskeletal pain, encouraged warm compresses and ibuprofen and Tylenol Return precautions reviewed and patient expressed understanding Quality:SDOH Health Related Social Needs: No Data to Display PFSH All Active Problems (Updated 11/22/23 @ 13:35 by LUIS Regalado) Abdominal pain, RLQ (Acute) Dog bite of right forearm (Acute) Contusion of right ulnar nerve (Acute) Medical History Asthma Asthma, intermittent Ear pain, right Elevated hemoglobin A1c Family history of alcoholism Hx of herpes zoster Migraine Obesity Plantar wart Seizure disorder pt states this was a single seizure, induced by first dose of Immitrex. Denies seizure disorder. Sinus infection Vitamin D deficiency Surgical History Hx of cholecystectomy Social History Smoking/Tobacco Use Status: Current every day Smoking risk assessment performed?: Yes Alcohol Intake: current Alcohol Intake frequency: a few times a month Alcohol type: wine Drug use: Never Substance use type: does not use Do you feel safe at home: Yes Do you feel safe in your relationship?: Yes
[2023-11-22 13:43] VITALS: BP 128/78; PULSE 82; RESP 17; O2SAT 97
== END 2023-11-22 13:44 | disposition home or self-care (01) ==
PROVIDERS: Emergency Provider Physician Assistant; PCP Nurse Practitioner Family
DX: R10.31 Right lower quadrant pain (principal); R11.0 Nausea; Z87.442 Personal history of urinary calculi
CPT/HCPCS: 80053; 81025; 96374; 99285; 74177; 81003; 85025; 86140; 99283; J1885; J3490

== ENCOUNTER 2023-11-27 14:43 | Outpatient (REF) | payer BC, SELFPAY ==
[2023-11-27 17:03] LABS: TSH (W/Ref FT4) 1.71 uIU/mL (0.36-3.74)
[2023-11-27 22:15] LABS: FSH 8.2 mIU/mL (See Note); Prolactin 7.6 ng/mL (See Note)
[2023-11-28 09:32] LABS: CA 125 10 U/mL (<30)
== END 2023-11-27 14:44 | disposition home or self-care (01) ==
LOC: NCHCN 14:43
PROVIDERS: PCP Nurse Practitioner Family; Referring Provider Nurse Practitioner Family; Visit Provider Nurse Practitioner Family
DX: D25.9 Leiomyoma of uterus, unspecified (principal); E55.9 Vitamin D deficiency, unspecified; F32.9 Major depressive disorder, single episode, unspecified
CPT/HCPCS: 82306; 86304; 83001; 84146; 84443

== ENCOUNTER 2024-07-02 12:01 | Outpatient (REF) | payer BC, SELFPAY ==
[2024-07-02 15:05] LABS: HCT 41.5 % (36.0-46.0); HGB 14.1 g/dL (11.2-15.7); MCH 29.7 pg (27.0-33.0); MCV 87 fL (80-95); MPV 10.7 fL (8.0-11.0); Platelet Count 327 10^3/uL (130-400); RBC 4.75 10^6/uL (3.93-5.22); RDW 13.5 % (11.7-14.6); RDW-SD 43.1 fL; WBC 8.78 10^3/uL (4.4-10.8)
[2024-07-02 15:18] LABS: Hemoglobin A1C 5.8 % (<5.7)
[2024-07-02 15:48] LABS: ALT 17 U/L (14-59); AST 14 U/L (15-37); Albumin 3.8 g/dL (3.4-5.0); Alkaline Phosphatase 72 U/L (46-116); BUN 16 mg/dL (7-18); Bilirubin, Total 0.22 mg/dL (0.2-1.0); CREATININE 0.7 mg/dL (0.55-1.02); Calcium 9.2 mg/dL (8.5-10.1); Calculated LDL 115 mg/dL (<100); Chloride 102 mmol/L (98-107); Cholesterol 187 mg/dL (<200); Estimated GFR 107.95 (mL/min/1.73m2); Glucose 96 mg/dL (74-106); HDL Cholesterol 48 mg/dL (40-60); Potassium 4.3 mmol/L (3.5-5.1); Sodium 137 mmol/L (136-145); TSH (W/Ref FT4) 0.81 uIU/mL (0.36-3.74); Triglyceride 122 mg/dL (<150); Vitamin D 25 Total 22.7 ng/mL (30-100)
== END 2024-07-02 12:02 | disposition home or self-care (01) ==
LOC: NCHCN 12:01
PROVIDERS: PCP Nurse Practitioner Family; Visit Provider Nurse Practitioner Family
DX: R53.83 Other fatigue (principal)
CPT/HCPCS: 80053; 80061; 82306; 85027; 83036; 84443

== ENCOUNTER 2025-03-04 00:46 | Outpatient (CLI) | payer BC, SELFPAY ==
--- NOTE | 2025-03-04 | DI.MAMMO_ITS ---
Exam(s) MAMMO SCREENING EXAM: MAMMO SCREENING CLINICAL HISTORY: Z12.31 Screening. TECHNIQUE: Bilateral full field digital CC and MLO mammographic images were obtained with 3D tomosyn thesis and utilizing computer aided detection (CAD). COMPARISON: Prior mammograms were reviewed. FINDINGS: There are no new left breast findings. In the right breast there is a laterally located benign-appearing nodule again noted which is probabl y benign intramammary lymph node. Another previously present nodule at this location is no longer se en. However, in the most medial aspect of the right breast there is a new oval 5 x 4 millimeter nodule lo cated 7 cm in from the nipple, not previously present. Requires further imaging. There are no malignant-appearing microcalcification groups is region or elsewhere in either breast. There is no significant architectural distortion nor skin thickening-retraction. IMPRESSION: 1. No radiographic evidence of malignancy in the left breast. 2. There is a new well-defined noncalcified oval 5 x 4 mm nodule located medially in the right breast as described above. Spot compression view and ultrasound recommended. BI-RADS Category 0 - Incomplete: Need additional imaging evaluation Breast Density - Category C - The breast are heterogeneously dense, which may obscure small masses. Breast density Category C or D implies that the patient has dense breast tissue. Dense breast tissue can make it harder to find cancer on a mammogram. Dense breast tissue is also associated with an incr eased risk of breast cancer. This information about the result of the mammogram report was provided to the patient to raise their awareness. Use this report when you speak with the patient about their risks for breast cancer, which includes their family history. At that time, you may recommend additional screening tests (Ultrasoun d or MRI) as these tests may add significant information. A negative radiographic report should not delay biopsy if a dominant or clinically suspicious mass is present. Up to ten percent of cancers are not identified on mammography. A negative report may reinforce clinical impression. Adenosis and dense breasts may obscure an underlying neoplasm. False positive reports average 6 to 10%. Patient will receive a letter notifying them of these results.
== END 2025-03-04 01:06 ==
LOC: DI 00:46
PROVIDERS: PCP Nurse Practitioner Family; Visit Provider Nurse Practitioner Family
DX: Z12.31 Encounter for screening mammogram for malignant neoplasm of breast (principal); R92.333 Mammographic heterogeneous density, bilateral breasts
CPT/HCPCS: 77063; 77067

== ENCOUNTER 2025-03-09 02:05 | Outpatient (CLI) | payer BC, SELFPAY ==
--- NOTE | 2025-03-09 15:23 | DI.MAMMO_ITS ---
Exam(s) MG MAMMO SCREEN CALL BACK UNI US BREAST RT LIMITED EXAM: MG MAMMO SCREEN CALL BACK UNI and U/S breast RT limited CLINICAL HISTORY: F/U MAMMO, NEW RT BREAST NODULE. TECHNIQUE: Craniocaudal and mediolateral oblique Full Field Digital Mammography views of the right b reast with Computer Aided Diagnosis followed by Tomosynthesis and limited right breast ultrasound. COMPARISON: Comparison is made with prior examinations. FINDINGS: Mammography/Tomosynthesis: Masses/Architectural Distortion: There is a well-circumscribed nodule which appears to be just beneat h the skin surface in the medial right breast. No suspicious masses or areas of architectural distor tion are seen. Microcalcifictions: No suspicious pleomorphic-type are seen. Skin Thickening/Nipple Retraction: None. Limited right breast US: Echotexture: Normal appearance of the glandular tissue. Shadowing: No suspicious foci. Cyst: None. Solid lesions: There is a well-circumscribed hypoechoic nodule in the subcutaneous tissues of the rig ht breast. This corresponds to the mammographic abnormality. It is at the 3 o'clock position 7 cm f rom the nipple. There also appears to be a tiny duct leading to the skin surface. The findings are most suspicious for a sebaceous cyst. Ductal dilation: None. IMPRESSION: 1. No evidence of malignancy is noted. 2. Unless there is more urgent need, follow-up screening mammography is recommended, as per [employer] guidelines. 3. The findings were discussed with the patient on the date of the examination. BI-RADS Category 2 - Benign Findings Breast Density - Category C - The breast are heterogeneously dense, which may obscure small masses. Breast density Category C or D implies that the patient has dense breast tissue. Dense breast tissue can make it harder to find cancer on a mammogram. Dense breast tissue is also associated with an incr eased risk of breast cancer. This information about the result of the mammogram report was provided to the patient to raise their awareness. Use this report when you speak with the patient about their risks for breast cancer, which includes their family history. At that time, you may recommend additional screening tests (Ultrasoun d or MRI) as these tests may add significant information. A negative radiographic report should not delay biopsy if a dominant or clinically suspicious mass is present. Up to ten percent of cancers are not identified on mammography. A negative report may reinforce clinical impression. Adenosis and dense breasts may obscure an underlying neoplasm. False positive reports average 6 to 10%. Patient will receive a letter notifying them of these results.
== END 2025-03-09 02:25 ==
LOC: DI 02:05
PROVIDERS: PCP Nurse Practitioner Family; Visit Provider Nurse Practitioner Family
DX: Z12.31 Encounter for screening mammogram for malignant neoplasm of breast (principal); R92.8 Other abnormal and inconclusive findings on diagnostic imaging of breast; R92.333 Mammographic heterogeneous density, bilateral breasts
CPT/HCPCS: 76642; 77063; 77067

== ENCOUNTER 2025-07-12 13:28 | Outpatient (REF) | payer BC, SELFPAY ==
[2025-07-12 15:44] LABS: Hemoglobin A1C 5.7 % (<5.7)
[2025-07-12 16:05] LABS: Vitamin D 25 Total 25 ng/mL (30-100)
== END 2025-07-12 13:29 | disposition home or self-care (01) ==
LOC: NCHCN 13:28
PROVIDERS: PCP Nurse Practitioner Family; Visit Provider Nurse Practitioner Family
DX: R73.03 Prediabetes (principal); E55.9 Vitamin D deficiency, unspecified
CPT/HCPCS: 82306; 83036

== ENCOUNTER 2025-08-03 10:28 | Outpatient (CLI) | payer BC, SELFPAY ==
--- NOTE | 2025-08-03 08:56 | DI.RAD_ITS ---
Exam(s) XR SHOULDER LT COMPLETE 2+V EXAM: XR SHOULDER LT COMPLETE 2+V CLINICAL HISTORY: LEFT SHOULDER PAIN. TECHNIQUE: 2D digital imaging was performed. COMPARISON: CR,XR XR SHOULDER LT COMPLETE 2+V from 12/10/2021 FINDINGS: Two views No evidence of fracture or dislocation nor joint space narrowing. Bone density normal. No osseous lesions. The main finding here is a chunk of calcification in the subacromial space just above greater tuberosity measuring 10 by 4 mm consistent with calcific rotator cuff tendinitis. The subacromial space itself is not diminished. IMPRESSION: Rotator cuff calcific tendinitis. This appears to be in the region of the foot pad insertional aspect just above the greater tuberosity DATA REPOSITORY: RADIATION DOSE DELIVERED:
== END 2025-08-03 10:29 | disposition home or self-care (01) ==
LOC: DIORS 10:28
PROVIDERS: PCP Nurse Practitioner Family; Visit Provider Student in an Organized Health Care Education/Training Program
DX: M25.512 Pain in left shoulder (principal); M75.32 Calcific tendinitis of left shoulder
CPT/HCPCS: 73030

== ENCOUNTER → 2025-08-24 00:51 | Outpatient (CLI) | payer BC, SELFPAY ==
--- NOTE | 2025-08-24 09:15 | DI.MRI_ITS ---
Exam(s) MR UPPER JOINT LT WO EXAM: MR UPPER JOINT LT WO CLINICAL HISTORY: L SHOULDER PAIN, LT ROTATOR CUFF TEAR,M75.102. TECHNIQUE: Multiplanar multisequence MRI was performed. COMPARISON: Plain films 03 August 2025 FINDINGS: BONES: There is no fracture or contusion pattern. JOINTS:The acromioclavicular joint is normal. The glenohumeral joint is normal. TENDONS: Supraspinatus: Coarse calcification noted at the insertion. No abnormal surrounding increased signal. No abnormal tendon thickening. Infraspinatus: Unremarkable. Subscapularis: Unremarkable. Teres Minor: Unremarkable. Biceps and Hanna: Unremarkable. MUSCLES: Unremarkable. GLENOID LABRUM: Unremarkable on this noncontrast examination. SOFT TISSUES: Unremarkable. BURSAE: Subacromial and subdeltoid bursae shows no fluid. There is a tiny amount of fluid in the subcoracoid bursa.. IMPRESSION: Calcification in the distal supraspinatus tendon without abnormal surrounding signal or visible tear. DATA REPOSITORY:
== END ==
LOC: DI 00:51
PROVIDERS: PCP Nurse Practitioner Family; Visit Provider Student in an Organized Health Care Education/Training Program
DX: M75.102 Unspecified rotator cuff tear or rupture of left shoulder, not specified as traumatic (principal)
CPT/HCPCS: 73221